=== PATIENT | female | born 1930 | race Caucasian/White ===

== ENCOUNTER 2016-07-26 18:45 | Emergency (ER) | payer MEDICARE, MEDICAID ==
[~2016-07-26] VITALS: Ht 165.1 cm; Wt 65.0 kg
[~2016-07-26 18:45] MED LIST: ACIP20TA19 PO; ADVAI500I PO; ALPH0.1S OP; AMIT10 PO; BECL.042%I INH; CALCCHW9 PO; CELE200 PO; DIOV320T PO; LYRI50CA2 PO; MINO50TA PO; OMEG5CAP PO; POTA595T5 PO; ULTR50TA PO; VYTO10TA29 PO; [UNRECOGNIZED DRUG - CODE]; [UNRECOGNIZED DRUG - CODE] IM
[2016-07-26 18:46] VITALS: BP 170/81; PULSE 112; RESP 14; TEMP 98.2; O2SAT 94
--- NOTE | 2016-07-26 20:16 | PD ---
HPI Chief Complaint: Laceration/Skin Injury Time Seen by Provider: 20:00 Travel History International Travel<30 days: No Contact w/Intl Traveler<30days: No Traveled to known affect area: No History of Present Illness HPI 85-year-old female presents for evaluation of a skin tear to the left forearm. It was sustained 2 hours prior to arrival on the edge of a microwave. She has very thin skin and has had skin tears in the past, most recently in mid June on her right leg. She is on chronic prednisone for treatment of rheumatoid arthritis. 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 Last tetanus vaccination within 5 years. No other complaints. PFSH Past Medical History Arthritis: Yes Asthma: Yes Atrial Fibrillation: Yes Heart Rhythm Problems: Yes Cancer: No Cardiovascular Problems: Yes (ATRIAL FIB 15 YEARS AGO--RESOLVED) High Cholesterol: Yes Chest Pain: No Congestive Heart Failure: No COPD: Yes Diabetes: No Diminished Hearing: No Endocrine: No Fibromyalgia: Yes Gastrointestinal Disorders: Yes (ACID REFLUX, CONSTIPATION) GERD: No Genitourinary: No Hepatitis: No Hiatal Hernia: No Hypertension: Yes Immune Disorder: Yes (RHEUMATOID ARTHRITIS, FIBROMYALGIA) Musculoskeletal: Yes (RHEUMATOID AND OSTEOARTHRITIS, CHRONIC BACK PAIN, RIB FRACTURES) Neurologic: No Psychiatric: No Reproductive: No Respiratory: Yes (copd) Immunizations Current: Yes Sleep Apnea: No Thyroid Disease: No Ulcer: No Tetanus Vaccination: > 5 Years Influenza Vaccination: Yes Menopausal: Yes Past Surgical History Abdominal Surgery: Yes (APPENDECTOMY) Appendectomy: Yes Body Medical Devices: HX OF FIBROMYALGIA Cardiac Surgery: No Ear Surgery: Yes Endocrine Surgery: No Eye Surgery: Yes (SKIP CATARACTS SURGERY) Genitourinary Surgery: Yes (BLADDER SLING) Gynecologic Surgery: Yes (HYSTERECTOMY) Hysterectomy: Yes Neurologic Surgery: Yes Oral Surgery: No Pacemaker: No Thoracic Surgery: No Tonsillectomy: Yes Other Surgery: Yes (REMOVAL OF NASAL POLYPS) Social History Alcohol Use: No Tobacco Use: No Substance Use: No Allergies-Medications (Allergen,Severity, Reaction): Coded Allergies: Flagyl (Verified Allergy, Severe, 07/24/16) Flexeril (Verified Allergy, Severe, HEART PROBLEMS, 07/24/16) Gabapentin (Verified Allergy, Severe, RASH, 07/24/16) Meloxicam (Verified Allergy, Severe, RASH, 07/24/16) Rocephin (Verified Allergy, Severe, 07/24/16) Codeine (Verified Allergy, Mild, NAUSEA/VOMIT, 07/24/16) Keflex (Verified Allergy, Mild, Swelling, 07/24/16) Penicillin (Verified Allergy, Mild, Swelling, 07/24/16) Sulfa (Verified Allergy, Mild, Swelling, 07/24/16) *MDRO Multi-Drug Resistant Organism (Verified Allergy, Unknown, 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 Plaquenil (Verified Allergy, Unknown, 07/24/16) Reported Meds & Prescriptions Reported Meds & Active Scripts Active Reported Minocycline Hcl (Minocycline HCl) 50 Mg Cap 50 Mg PO BID Ultram (Tramadol HCl) 50 Mg Tab 50 Mg PO TID PRN Diovan 320 mg (Valsartan) 320 Mg Tab 320 Mg PO DAILY Delestrogen (Estradiol Valerate) 100 Mg/5 Ml Oil Delestrogen (Estradiol Valerate) 10 Mg/Ml Inj 20 Mg IM MONTHLY Vytorin 10/10 (Ezetimibe/Simvastatin) Tab 1 Tab PO HS Advair Diskus 500/50 (Salmeterol Xinafoate/Fluticasone) Fluticasone/Salmeterol 500/50 Inh 1 Inhalation PO BID Alphagan P (Brimonidine Tartrate) 0.1 % Bee 1 Drop OP TID BOTH EYES Fish Oil 1200 mg ([place]-3 Fatty Acids) 1 Cap Cap 1 Cap PO DAILY Eql Potassium Gluconate (Potassium Gluconate) 595 Mg Tab 595 Mg PO DAILY Calcium 1200 (Calcium Carbonate-Vitamin D W/) Chw 1 Tab PO BID Lyrica (Pregabalin) 50 Mg Cap 50 Mg PO TID Elavil 10 Mg Tab (Amitriptyline HCl) 10 Mg Tab 20 Mg PO HS Aciphex (Rabeprazole Sodium) 20 Mg Tabdr 20 Mg PO DAILY Beconase Aq (Beclomethasone Dipropionate) 25 Gm Naspr 0.042 % INH BID Celebrex (Celecoxib) 200 Mg Cap 200 Mg PO DAILY Review of Systems Except as stated in HPI: all other systems reviewed are Neg Physical Exam Narrative GENERAL: Well-developed well-nourished female in no acute distress SKIN: Warm and dry. There is a 3 cm V-shaped skin tear to the left forearm. The patient has paper thin skin. The dermis is intact. Subcutaneous tissue is not visible. Extremities: Skin as noted above, no bony or neurovascular deformity. Data Data Last Documented VS Vital Signs Date Time Temp Pulse Resp B/P Pulse Ox O2 Delivery O2 Flow Rate FiO2 07/26/16 18:46 98.2 112 14 170/81 94 Room Air MDM Medical Decision Making Medical Screen Exam Complete: Yes Emergency Medical Condition: Yes Medical Record Reviewed: Yes Differential Diagnosis Skin tear, tissue avulsion, puncture wound Narrative Course The patient's superficial skin tear was repaired utilizing Dermabond and Steri- Strips as it would not be amenable to suture repair given the frailness of her skin. She verbalizes consent for skin tear repair. Procedures Procedure Narrative Skin tear LOCATION: Left forearm LENGTH: 3 cm NUMBER OF STITCHES/ANUM: Closed with Dermabond and Steri-Strips REPAIR:The wound was copiously irrigated and explored without evidence of foreign body, tendon injury or neurovascular injury. The wound was closed using Dermabond and Steri-Strips. This was a single layer repair. A sterile dressing was applied. The patient was advised to keep the dressing clean and dry. Patient tolerated the procedure well. Diagnosis Primary Impression: Skin tear of left upper extremity Additional Instructions: Keep the wound clean and dry. Follow-up with your rn wound care as scheduled. Return for any emergent medical conditions. Med/Other Pt SpecificInfo: Wound Care Disposition: DISCHARGE HOME Condition: Stable Raf Borjas Jul 26, 2016 20:16
[2016-08-16] MEDS ORDERED: LYRI50CA PO (11:45)
[2016-08-16] MEDS ORDERED: MINO50CA PO (11:45)
[2016-08-16] MEDS ORDERED: VALS1TAB70 PO (11:45)
[2016-08-16] MEDS ORDERED: ALPH0.1S EACH EYE (11:45)
[2016-08-16] MEDS ORDERED: CELE200C PO (11:45)
[2016-08-16] MEDS ORDERED: POTA595T PO (11:45)
[2016-08-16] MEDS ORDERED: TRAM50TA PO (11:45)
[2016-08-16] MEDS ORDERED: ADVA500A INH (11:45)
[2016-08-16] MEDS ORDERED: VYTO10TA27 PO (11:45)
[2016-08-16] MEDS ORDERED: [UNRECOGNIZED DRUG - CODE] INJ (11:45)
[2016-08-16] MEDS ORDERED: CALCCHW9 CHEW (11:45)
[2016-08-16] MEDS ORDERED: AMIT1TAB79 PO (11:45)
[2016-08-16] MEDS ORDERED: ACIP20TA6 PO (11:45)
[2016-08-16] MEDS ORDERED: BECL.042%I EACH NARE (11:45)
[2016-08-16] MEDS ORDERED: OMEG12002 PO (11:45)
[2016-08-21] MEDS ORDERED: CIPR-9 PO (11:10)
[2016-12-01] MEDS ORDERED: MURO2SOL RIGHT EYE (08:52)
[2016-12-01] MEDS ORDERED: PRED2.5T PO (09:08)
== END 2016-07-26 20:32 | disposition home or self-care (01) ==
LOC: NEPB 18:45
DX: S51.812A Laceration without foreign body of left forearm, initial encounter (principal); W22.8XXA Striking against or struck by other objects, initial encounter; M06.9 Rheumatoid arthritis, unspecified; J45.909 Unspecified asthma, uncomplicated; I48.91 Unspecified atrial fibrillation; E78.00 Pure hypercholesterolemia, unspecified; J44.9 Chronic obstructive pulmonary disease, unspecified; I10 Essential (primary) hypertension
CPT/HCPCS: 12002

== ENCOUNTER → 2016-08-18 | Outpatient (CLI) | payer MEDICARE, MEDICAID ==
[~2016-08-18] MED LIST changes: -ACIP20TA19 PO; +ACIP20TA6 PO; +ADVA500A INH; -ADVAI500I PO; +ALPH0.1S EACH EYE; -ALPH0.1S OP; -AMIT10 PO; +AMIT10TA6 PO; +AMIT1TAB79 PO; +BECL.042%I EACH NARE; -BECL.042%I INH; +CALC600T64 PO; +CALCCHW9 CHEW; -CALCCHW9 PO; -CELE200 PO; +CELE200C PO; +CIPR-9 PO; -DIOV320T PO; +LATA0.002 EACH EYE; +LYRI50CA PO; -LYRI50CA2 PO; +MINO50CA PO; -MINO50TA PO; +MURO2SOL RIGHT EYE; +OMEG12002 PO; -OMEG5CAP PO; +POTA595T PO; -POTA595T5 PO; +PRED2.5T PO; +TRAM50TA PO; -ULTR50TA PO; +VALS1TAB70 PO; +VYTO10TA27 PO; -VYTO10TA29 PO; -[UNRECOGNIZED DRUG - CODE]; -[UNRECOGNIZED DRUG - CODE] IM; +[UNRECOGNIZED DRUG - CODE] INJ
== END ==
LOC: ELAB 11:32
PROVIDERS: ATTEND Internal Medicine
DX: R05 Cough (principal)
CPT/HCPCS: 87070; 87107; 87205

== ENCOUNTER → 2016-09-04 | Outpatient (CLI) | payer MEDICARE, MEDICAID ==
[~2016-09-04] MED LIST changes: -CIPR-9 PO
--- NOTE | 2016-09-06 08:50 | RSPPFT ---
DATE OF PROCEDURE: 09/04/16 COMMENTS: VOLUMES DYNAMIC: FVC and FEV1 normal. STATIC: VTG, RV and TLC normal. FLOWS: FEV1% and FEF 25-75 normal. DIFFUSION: Normal. FLOW VOLUME LOOP: Normal configuration. IMPRESSION: Normal pulmonary functions with no significant obstruction or restriction, normal diffusion and no improvement post-bronchodilator.
== END ==
LOC: HRSP 13:14
PROVIDERS: ATTEND Internal Medicine
DX: J44.9 Chronic obstructive pulmonary disease, unspecified (principal); J45.909 Unspecified asthma, uncomplicated
CPT/HCPCS: 94060; 94620; 94726; 94729; 95012

== ENCOUNTER → 2016-09-05 | Outpatient (CLI) | payer MEDICARE, MEDICAID ==
[2016-09-05 12:24] LABS: AUTOMATED NEUTROPHIL # 4.6 TH/MM3 (1.8-7.7); BASOPHIL # 0.1 TH/MM3 (0-0.2); BASOPHIL % 1.3 % (0.0-2.0); EOSINOPHIL # 0.7 TH/MM3 (0-0.4); EOSINOPHIL % 8.6 % (0.0-4.0); HEMATOCRIT 36.6 % (35.0-46.0); HEMO FLAGS DIFF FINAL; LYMPH % 17.8 % (9.0-44.0); LYMPHOCYTE # 1.4 TH/MM3 (1.0-4.8); MEAN CELL VOLUME 88.7 FL (80.0-100.0); MEAN CORPUSCULAR HEMOGLOBIN 29.3 PG (27.0-34.0); MONO % 13.7 % (0.0-8.0); NEUT % 58.6 % (16.0-70.0); PLATELET COUNT 311 TH/MM3 (150-450); RED BLOOD COUNT 4.13 MIL/MM3 (4.00-5.30); RED CELL DISTRIBUTION WIDTH 13.9 % (11.6-17.2); WHITE BLOOD COUNT 7.8 TH/MM3 (4.0-11.0)
[2016-09-05 12:37] LABS: ALKALINE PHOSPHATASE 67 U/L (45-117); ALT (GPT) 18 U/L (10-53); ANION GAP 7 MEQ/L (5-15); AST (GOT) 18 U/L (15-37); BICARBONATE 27.7 MEQ/L (21.0-32.0); BLOOD UREA NITROGEN 21 MG/DL (7-18); CHLORIDE 105 MEQ/L (98-107); GLOMERULAR FILTRATION RATE 55 ML/MIN (>89); GLUCOSE,FASTING 85 MG/DL (74-99); POTASSIUM 3.6 MEQ/L (3.5-5.1); SODIUM (NA) 140 MEQ/L (136-145); TOTAL BILIRUBIN ADULT 0.6 MG/DL (0.2-1.0)
[2016-09-05 12:54] LABS: WESTERGREN SEDIMENTATION RATE 17 mm/hr (0-30)
== END ==
LOC: ELAB 10:13
PROVIDERS: ATTEND Internal Medicine
DX: J47.9 Bronchiectasis, uncomplicated (principal); J45.909 Unspecified asthma, uncomplicated; B44.9 Aspergillosis, unspecified; M06.89 Other specified rheumatoid arthritis, multiple sites; Z79.899 Other long term (current) drug therapy
CPT/HCPCS: 36415; 80053; 82785; 85025; 85652; 86140; 86606

== ENCOUNTER 2016-10-01 14:33 | Emergency (ER) | payer MEDICARE, MEDICAID ==
[~2016-10-01] VITALS: Ht 165.1 cm; Wt 70.0 kg
[~2016-10-01 14:33] MED LIST changes: -AMIT10TA6 PO; -CALC600T64 PO; -LATA0.002 EACH EYE; -MURO2SOL RIGHT EYE; -PRED2.5T PO
[2016-10-01 14:36] VITALS: BP 168/84; PULSE 78; RESP 16; TEMP 97.9; O2SAT 97
--- NOTE | 2016-10-01 15:00 | PD ---
HPI . left forearm abrasion Chief Complaint: Skin Problem Time Seen by Provider: 14:59 Travel History International Travel<30 days: No Contact w/Intl Traveler<30days: No Traveled to known affect area: No History of Present Illness HPI 86 yr old female with multiple medical problems here requesting sutures to a small abrasion on her left medial forearm. Patient has a small abrasion and not aware of a mechanism of injury. She came in requesting sutures because she is scheduled to have an epidural on 10/20 and the doctor will not perform if she has any open skin abrasions. She has no complaints. PFSH Past Medical History Arthritis: Yes Asthma: Yes Atrial Fibrillation: Yes Heart Rhythm Problems: Yes Cancer: No Cardiovascular Problems: Yes (ATRIAL FIB 15 YEARS AGO--RESOLVED) High Cholesterol: Yes Chest Pain: No Congestive Heart Failure: No COPD: Yes Diabetes: No Diminished Hearing: No Endocrine: No Fibromyalgia: Yes Gastrointestinal Disorders: Yes (ACID REFLUX, CONSTIPATION) GERD: No Genitourinary: No Hepatitis: No Hiatal Hernia: No Hypertension: Yes Immune Disorder: Yes (RHEUMATOID ARTHRITIS, FIBROMYALGIA) Musculoskeletal: Yes (RHEUMATOID AND OSTEOARTHRITIS, CHRONIC BACK PAIN, RIB FRACTURES) Neurologic: No Psychiatric: No Reproductive: No Respiratory: Yes (copd) Immunizations Current: Yes Sleep Apnea: No Thyroid Disease: No Ulcer: No Menopausal: Yes Past Surgical History Abdominal Surgery: Yes (APPENDECTOMY) Appendectomy: Yes Body Medical Devices: HX OF FIBROMYALGIA Cardiac Surgery: No Ear Surgery: Yes Endocrine Surgery: No Eye Surgery: Yes (SKIP CATARACTS SURGERY) Genitourinary Surgery: Yes (BLADDER SLING) Gynecologic Surgery: Yes (HYSTERECTOMY) Hysterectomy: Yes Neurologic Surgery: Yes Oral Surgery: No Pacemaker: No Thoracic Surgery: No Tonsillectomy: Yes Other Surgery: Yes (REMOVAL OF NASAL POLYPS) Social History Alcohol Use: No Tobacco Use: No Substance Use: No Allergies-Medications (Allergen,Severity, Reaction): Coded Allergies: Flagyl (Verified Allergy, Severe, 10/01/16) Flexeril (Verified Allergy, Severe, HEART PROBLEMS, 10/01/16) Gabapentin (Verified Allergy, Severe, RASH, 10/01/16) Meloxicam (Verified Allergy, Severe, RASH, 10/01/16) Rocephin (Verified Allergy, Severe, 10/01/16) Codeine (Verified Allergy, Mild, NAUSEA/VOMIT, 10/01/16) Keflex (Verified Allergy, Mild, Swelling, 10/01/16) Penicillin (Verified Allergy, Mild, Swelling, 10/01/16) Sulfa (Verified Allergy, Mild, Swelling, 10/01/16) *MDRO Multi-Drug Resistant Organism (Verified Allergy, Unknown, 10/01/16) MRSA Plaquenil (Verified Allergy, Unknown, 10/01/16) Reported Meds & Prescriptions Reported Meds & Active Scripts Active Reported Advair Diskus Inh (Fluticasone-Salmeterol Inh) 500-50 Mcg/Blist Aer 1 Puff INH BID Rinse mouth after use. Beconase Aq Nasal (Beclomethasone Dipropionate) 42 Mcg/[place] Susp 1 [place] NASAL BID To each nostril. Alphagan P Opth Drops (Brimonidine Tartrate) 0.1% Soln 1 Drop EACH EYE TID Calcium 1200 (Calcium Carbonate-Vitamin D W/Minerals) 1,200-1,000 Mg-Unit Chew 1 Tab CHEW BID Celebrex (Celecoxib) 200 Mg Cap 200 Mg PO DAILY Delestrogen Valerate Inj (Estradiol Valerate) 20 Mg/Ml Inj 20 Mg INJ MONTHLY Elavil (Amitriptyline HCl) 25 Mg Tab 20 Mg PO HS Vytorin (Ezetimibe-Simvastatin) 10-10 Mg Tab 1 Tab PO HS Minocycline (Minocycline HCl) 50 Mg Cap 50 Mg PO BID [place] 3 1200 mg ([place]-3 Fatty Acids) 1 Cap Cap 1 Cap PO DAILY Potassium Gluconate 595 Mg Tab 1 PO DAILY Lyrica (Pregabalin) 50 Mg Cap 50 Mg PO TID Aciphex (Rabeprazole Sodium) 20 Mg Tab 20 Mg PO DAILY Tramadol (Tramadol HCl) 50 Mg Tab 50 Mg PO TID PRN Valsartan 320 Mg Tab 320 Mg PO DAILY Review of Systems General / Constitutional: No: Fever Eyes: No: Visual changes HENT: No: Headaches Cardiovascular: No: Chest Pain or Discomfort Respiratory: No: Shortness of Breath Gastrointestinal: No: Abdominal Pain Genitourinary: No: Dysuria Musculoskeletal: No: Pain Skin: Positive Other (skin abrasion), No Rash Neurologic: No: Weakness Psychiatric: No: Depression Endocrine: No: Polydipsia Hematologic/Lymphatic: No: Easy Bruising Physical Exam Narrative GENERAL: AAO x 3, no acute distress, Well-nourished, well-developed patient. SKIN: Warm and dry. No visible rashes or bruising. small 0.8 cm abrasion to the left medial forearm. Does not require sutures. Clean and not bleeding. HEAD: Normocephalic and atraumatic. EYES: No scleral icterus. No injection or drainage. ENT: No nasal drainage noted. Mucous membranes pink. Airway patent. NECK: Supple, trachea midline. No JVD. CARDIOVASCULAR: Regular rate and rhythm without murmurs, gallops, or rubs. RESPIRATORY: Breath sounds equal bilaterally. No accessory muscle use. No rhonchi or rales. GASTROINTESTINAL: Abdomen soft, non-tender, nondistended. EXTREMITIES: No cyanosis or edema. BACK: Nontender without obvious deformity. No CVA tenderness. PSYCH: AAO x 3, normal affect. Data Data Last Documented VS Vital Signs Date Time Temp Pulse Resp B/P Pulse Ox O2 Delivery O2 Flow Rate FiO2 10/01/16 14:36 97.9 78 16 168/84 97 MDM Medical Decision Making Medical Screen Exam Complete: Yes Emergency Medical Condition: Yes Differential Diagnosis skin abrasion, less likely laceration, less likely fracture Narrative Course 86 yr old female with multiple medical problems here requesting sutures to a small abrasion on her left medial forearm. Patient has a small abrasion and not aware of a mechanism of injury. She came in requesting sutures because she is scheduled to have an epidural on 10/20 and the doctor will not perform if she has any open skin abrasions. She has no complaints. Procedures Procedure Narrative LACERATION LOCATION: left medial forearm abrasion LENGTH: 0.8 cm NUMBER OF STITCHES/ANUM: derma leon and steri strip REPAIR: The area of the laceration was prepped with Betadine. No evidence of foreign body, tendon injury or neurovascular injury. The wound was closed using derma leon and a steri strip. This was a single layer repair. A sterile dressing was applied. The patient was advised to keep the dressing clean and dry. Patient tolerated the procedure well. Diagnosis Primary Impression: Skin tear of left upper extremity Patient Instructions: Abrasion (ED), General Instructions Additional Instructions: Please return to emergency department if your symptoms return or worsen. Follow up with your primary care provider. Howes for worsening signs of infection which include increased redness, increased warmth, purulent drainage, increased swelling or streaking. Try to keep this area free of moisture. Disposition: 01 DISCHARGE HOME Condition: Stable Mady Rehman Oct 01, 2016 14:59
[2016-12-01] MEDS ORDERED: MURO2SOL RIGHT EYE (08:52)
[2016-12-01] MEDS ORDERED: PRED2.5T PO (09:08)
== END 2016-10-01 15:55 | disposition home or self-care (01) ==
LOC: NEPB 14:33
DX: S51.812A Laceration without foreign body of left forearm, initial encounter (principal); X58.XXXA Exposure to other specified factors, initial encounter
CPT/HCPCS: 12001

== ENCOUNTER → 2016-11-28 | Outpatient (CLI) | payer MEDICARE, MEDICAID ==
[~2016-11-28] MED LIST changes: +AMIT10TA6 PO; +CALC600T64 PO; +LATA0.002 EACH EYE; +MURO2SOL RIGHT EYE; +PRED2.5T PO
[2016-11-28 11:52] LABS: HEMATOCRIT 35.9 % (35.0-46.0); MEAN CELL VOLUME 89.2 FL (80.0-100.0); MEAN CORPUSCULAR HEMOGLOBIN 28.4 PG (27.0-34.0); MEAN CORPUSCULAR HGB CONC 31.8 % (32.0-36.0); PLATELET COUNT 274 TH/MM3 (150-450); RED BLOOD COUNT 4.03 MIL/MM3 (4.00-5.30); RED CELL DISTRIBUTION WIDTH 14.7 % (11.6-17.2); REVIEW FLAG FINAL; WHITE BLOOD COUNT 6.3 TH/MM3 (4.0-11.0)
[2016-11-28 12:15] LABS: ALKALINE PHOSPHATASE 60 U/L (45-117); ALT (GPT) 24 U/L (10-53); ANION GAP 6 MEQ/L (5-15); AST (GOT) 21 U/L (15-37); BICARBONATE 29.6 MEQ/L (21.0-32.0); BLOOD UREA NITROGEN 20 MG/DL (7-18); CHLORIDE 105 MEQ/L (98-107); GLOMERULAR FILTRATION RATE 49 ML/MIN (>89); GLUCOSE,FASTING 81 MG/DL (74-99); POTASSIUM 3.9 MEQ/L (3.5-5.1); SODIUM (NA) 141 MEQ/L (136-145); TOTAL BILIRUBIN ADULT 0.5 MG/DL (0.2-1.0)
[2016-11-30 14:00] LABS: MITOGEN MINUS NIL RESULT >10.00 IU/mL (()); NIL RESULT 0.12 IU/mL (()); QUANTIFERON TB GOLD RESULT Negative (Negative)
== END ==
LOC: ELAB 10:03
PROVIDERS: ATTEND Internal Medicine Cardiovascular Disease
DX: M06.89 Other specified rheumatoid arthritis, multiple sites (principal); I10 Essential (primary) hypertension; Z79.899 Other long term (current) drug therapy
CPT/HCPCS: 36415; 80053; 85027; 86480

== ENCOUNTER → 2016-12-01 | Day surgery (SDC) | payer MEDICARE, MEDICAID ==
[~2016-12-01] MED LIST changes: +IOHEXOL 180 MG/ML 20 ML VIAL (for RAD DIAG) EPIDURAL ONE; +LIDOCAINE HCL 1% PF 30 ML VIAL EPIDURAL ONE; +PROPOFOL 200 MG/20 ML AMP IV ONE; +TRIAMCINOLONE ACETONIDE 40 MG/ML VIAL NERV BLOCK ONE
--- NOTE | 2016-12-04 08:56 | M6 ---
cc: SULLY SHOEMAKER M.D. DATE 12/01/2016 1932 PROCEDURE Fluoroscopically guided right S1 transforaminal nerve root injection, local anesthetic and steroid. History and physical was completed and signed. Consent was signed. Procedure site was marked. Medications were listed and reconciled. Pain score was recorded. Allergies were noted. Time out was taken. Fluoroscopy time was recorded where applicable. Sedation was administered or directed by Dr. Shoemaker. The patient was given oxygen. The patient was monitored by a registered nurse. Total procedure time was greater than 15 minutes. PROCEDURE NOTE IV was started. Blood pressure cuff, pulse oximeter and EKG were applied. The patient was placed in the prone position on a Yuriy table, sedated with small amounts of propofol titrated to effect. Vital signs were monitored and remained stable throughout the procedure. The sacral area was prepped with alcohol and 10% Betadine solution and draped with sterile drapes. Fluoroscopy was used in an oblique angle to clearly visualize the right S1 neural foramen. A 3-1/2-inch Chiba needle which was a 22-gauge needle was advanced into the foramen under fluoroscopic guidance. There was negative aspiration for blood or any other type of fluid. There was no washout to injection of Omnipaque dye and at this point the patient was given 3 mL of 1% Xylocaine and 60 mg of Kenalog. Following the procedure the patient was taken to the recovery room with stable vital signs, neurologically intact. WMD JOHN Monzon/JAYCEE /10:00 AM /8:55 AM
== END | disposition home or self-care (01) ==
LOC: PHSDC 08:18
PROVIDERS: ATTEND Pain Medicine Interventional Pain Medicine
DX: M54.5 Low back pain (principal)
CPT/HCPCS: 64483; 99152; J3301; Q9965

== ENCOUNTER 2016-12-12 14:26 | Emergency (ER) | payer OTHER, MEDICARE, MEDICAID ==
[~2016-12-12] VITALS: Ht 165.1 cm; Wt 64.0 kg
[~2016-12-12 14:26] MED LIST changes: -AMIT10TA6 PO; -CALC600T64 PO; -IOHEXOL 180 MG/ML 20 ML VIAL (for RAD DIAG) EPIDURAL ONE; -LATA0.002 EACH EYE; -LIDOCAINE HCL 1% PF 30 ML VIAL EPIDURAL ONE; -MINO50CA PO; -PROPOFOL 200 MG/20 ML AMP IV ONE; -TRIAMCINOLONE ACETONIDE 40 MG/ML VIAL NERV BLOCK ONE
[2016-12-12 14:35] VITALS: BP 156/71; PULSE 108; RESP 21; TEMP 98; O2SAT 96
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
[2016-12-12] MEDS ORDERED: SODIUM CHLORIDE 0.9% FLUSH 10 ML FLUSH IVF PRN (15:30)
[2016-12-12 15:32] VITALS: O2SAT 94
[2016-12-12 15:38] LABS: AUTOMATED NEUTROPHIL # 5.8 TH/MM3 (1.8-7.7); BASOPHIL # 0.1 TH/MM3 (0-0.2); EOSINOPHIL # 0.1 TH/MM3 (0-0.4); EOSINOPHIL % 1.6 % (0.0-4.0); HEMATOCRIT 37.2 % (35.0-46.0); HEMO FLAGS DIFF FINAL; LYMPH % 14.9 % (9.0-44.0); LYMPHOCYTE # 1.2 TH/MM3 (1.0-4.8); MEAN CELL VOLUME 89.7 FL (80.0-100.0); MEAN CORPUSCULAR HEMOGLOBIN 28.8 PG (27.0-34.0); MEAN CORPUSCULAR HGB CONC 32.1 % (32.0-36.0); MONO % 12.1 % (0.0-8.0); NEUT % 70.4 % (16.0-70.0); PLATELET COUNT 282 TH/MM3 (150-450); RED BLOOD COUNT 4.14 MIL/MM3 (4.00-5.30); RED CELL DISTRIBUTION WIDTH 14.7 % (11.6-17.2); WHITE BLOOD COUNT 8.2 TH/MM3 (4.0-11.0)
[2016-12-12 16:02] LABS: APTT (PATIENT) 23.1 SEC (24.3-30.1); INTERNATIONAL NORMALIZED RATIO 0.9 RATIO; PROTHROMBIN TIME - PATIENT 9.8 SEC (9.8-11.6)
[2016-12-12 16:20] LABS: BICARBONATE 25.1 MEQ/L (21.0-32.0); POTASSIUM 4.3 MEQ/L (3.5-5.1)
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
[2016-12-12] MEDS ORDERED: IOHEXOL 350 MG/ML 10 ML VIAL (for RAD DIAG) IV ONE (16:54)
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
[2016-12-12 17:17] VITALS: BP 169/77; PULSE 80; RESP 18; O2SAT 96
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
[2016-12-12] MEDS ORDERED: CALC600T64 PO (17:40)
[2016-12-12] MEDS ORDERED: AMIT10TA6 PO (17:40)
[2016-12-12] MEDS ORDERED: LATA0.002 EACH EYE (17:40)
--- NOTE | 2016-12-13 09:33 | EKG ---
Date Performed: 12/12/2016 Time Performed: 16:11:43 PTAGE: 86 years EKG: Sinus rhythm NORMAL ECG PREVIOUS TRACING : 05/01/2014 06.58 DOCTOR: Sandro Reaves Interpretating Date/Time 12/13/2016 09:31:48
== END 2016-12-12 18:41 | disposition home or self-care (01) ==
LOC: NEPE 14:26
DX: S20.212A Contusion of left front wall of thorax, initial encounter (principal); S80.12XA Contusion of left lower leg, initial encounter; N28.1 Cyst of kidney, acquired; I10 Essential (primary) hypertension; V49.40XA Driver injured in collision with unspecified motor vehicles in traffic accident, initial encounter
CPT/HCPCS: 70450; 71111; 71260; 72125; 72170; 73590; 74177; 80048; 85025; 85610; 85730; 93005; 99285; Q9967

== ENCOUNTER → 2017-03-12 | Day surgery (SDC) | payer MEDICARE, MEDICAID ==
[~2017-03-12] MED LIST changes: -ALPH0.1S EACH EYE; +AMIT10TA6 PO; -AMIT1TAB79 PO; +BUPIVACAINE HCL PF 0.5% 30 ML VIAL ONE; +CALC600T64 PO; -CALCCHW9 CHEW; +LATA0.002 EACH EYE; +PROPOFOL 200 MG/20 ML AMP IV ONE; +SODIUM CHLORIDE 0.9% 10 ML VIAL ONE; +TRIAMCINOLONE ACETONIDE 40 MG/ML VIAL NERV BLOCK ONE
--- NOTE | 2017-03-14 07:48 | M6 ---
cc: SULLY SHOEMAKER M.D. DATE 03/12/2017 DATE OF 1930. PROCEDURE Fluoroscopically guided right S1 transforaminal epidural steroid injection. History and physical was completed and signed. Consent was signed. Procedure site was marked. Medications were listed and reconciled. Pain score was recorded. Allergies were noted. Time out was taken. Fluoroscopy time was recorded where applicable. Sedation was administered or directed by Dr. Shoemaker. The patient was given oxygen. The patient was monitored by a registered nurse. Total procedure time was greater than 15 minutes. PROCEDURE NOTE IV was started. Blood pressure cuff, pulse oximeter and EKG were applied. The patient was placed in the prone position on a Yuriy table, sedated with small amounts of propofol titrated to effect. Vital signs were monitored and remained stable throughout the procedure. The sacral area was prepped with alcohol and 10% Betadine solution and draped with sterile drapes. Fluoroscopy was used to visualize the right S1 neural foramen. A 3-1/2-inch, 22-gauge Chiba needle was advanced through the neural foramen under fluoroscopic guidance. There was negative aspiration for blood or any other type of fluid and the patient was given 2 mL of 0.25% Marcaine, 2 mL of normal saline and 60 mg of Kenalog. Following the procedure the patient was taken to the recovery room with stable vital signs, neurologically intact. W. MD JOHN Miguel/JAYCEE /9:33 AM /7:39 AM
== END | disposition home or self-care (01) ==
LOC: PHSDC 08:16
PROVIDERS: ATTEND Pain Medicine Interventional Pain Medicine
DX: M54.16 Radiculopathy, lumbar region (principal); M79.669 Pain in unspecified lower leg
CPT/HCPCS: 64483; 99152; J3301

== ENCOUNTER → 2017-06-14 | Day surgery (SDC) | payer MEDICARE, MEDICAID ==
[~2017-06-14] MED LIST changes: +ACIP20TA19 PO; -ACIP20TA6 PO; -BECL.042%I EACH NARE; -BUPIVACAINE HCL PF 0.5% 30 ML VIAL ONE; +CIPR-9 PO; +EZET1TAB8 PO; +IOHEXOL 180 MG/ML 20 ML VIAL (for RAD DIAG) EPIDURAL ONE; +LEFL20TA11 PO; +LIDOCAINE HCL 1% PF 30 ML VIAL EPIDURAL ONE; +SIMV10TA PO; -SODIUM CHLORIDE 0.9% 10 ML VIAL ONE
--- NOTE | 2017-06-14 13:16 | M6 ---
cc: SULLY SHOEMAKER M.D. DATE 06/14/2017 DATE OF 1930 PROCEDURE Fluoroscopically guided right S1 transforaminal epidural steroid injection. History and physical was completed and signed. Consent was signed. Procedure site was marked. Medications were listed and reconciled. Pain score was recorded. Allergies were noted. Time out was taken. Fluoroscopy time was recorded where applicable. Sedation was administered or directed by Dr. Shoemaker. The patient was given oxygen. The patient was monitored by a registered nurse. Total procedure time was greater than 15 minutes. PROCEDURE NOTE IV was started. Blood pressure cuff, pulse oximeter and EKG were applied. The patient was placed in the prone position on a Yuriy table, sedated with small amounts of propofol titrated to effect. Vital signs were monitored and remained stable throughout the procedure. The sacral area was prepped with alcohol and 10% Betadine solution and draped with sterile drapes. Fluoroscopy was used to visualize the right S1 neural foramen. A 3-1/2-inch, 22-gauge Chiba needle was advanced into the foramen under fluoroscopic guidance. There was negative aspiration for blood or any other type of fluid. Omnipaque dye was injected and seen to outline the S1 nerve root. At this point the patient was given 3 mL of 1% Xylocaine, 3 mL of Omnipaque and 60 mg of Kenalog at that location. Following this she was taken to the recovery room with stable vital signs neurologically intact. W. MD JOHN Miguel/JAYCEE /10:10 AM /1:12 PM
== END | disposition home or self-care (01) ==
LOC: PHSDC 08:37
PROVIDERS: ATTEND Pain Medicine Interventional Pain Medicine
DX: M54.16 Radiculopathy, lumbar region (principal); M79.661 Pain in right lower leg; I10 Essential (primary) hypertension; M79.7 Fibromyalgia; J44.9 Chronic obstructive pulmonary disease, unspecified
CPT/HCPCS: 64483; 99152; J3301; Q9965

== ENCOUNTER 2017-07-13 07:33 | Day surgery (SDC) | payer MEDICARE, MEDICAID ==
[~2017-07-13] VITALS: Ht 165.1 cm; Wt 65.9 kg
[2017-07-13] VITALS (12 sets, daily range): BP systolic 120–163; BP diastolic 67–101; PULSE 62–115; RESP 16–20; TEMP 97.5–97.7; O2SAT 93–96
[~2017-07-13 07:33] MED LIST changes: -ACIP20TA19 PO; -CALC600T64 PO; -CIPR-9 PO; -IOHEXOL 180 MG/ML 20 ML VIAL (for RAD DIAG) EPIDURAL ONE; -LIDOCAINE HCL 1% PF 30 ML VIAL EPIDURAL ONE; -LYRI50CA PO; -MURO2SOL RIGHT EYE; +NITR2OIN TOPICAL; -OMEG12002 PO; -POTA595T PO; -PRED2.5T PO; -PROPOFOL 200 MG/20 ML AMP IV ONE; -TRAM50TA PO; -TRIAMCINOLONE ACETONIDE 40 MG/ML VIAL NERV BLOCK ONE; -VYTO10TA27 PO; -[UNRECOGNIZED DRUG - CODE] INJ
[2017-07-13] MEDS ORDERED: NITROGLYCERIN 1000 MCG/5 ML VIAL OTHER ONE (07:34)
[2017-07-13] MEDS ORDERED: GUAI100S7 PO (08:10)
[2017-07-13] MEDS ORDERED: [UNRECOGNIZED DRUG - OTHER] (08:10)
[2017-07-13] MEDS ORDERED: LYRI50CA PO (08:10)
[2017-07-13] MEDS ORDERED: OMEG12002 (08:10)
[2017-07-13] MEDS ORDERED: VYTO10TA8 PO (08:10)
[2017-07-13] MEDS ORDERED: ASCO1CAP PO (08:10)
[2017-07-13] MEDS ORDERED: FOLI400T PO (08:10)
[2017-07-13] MEDS ORDERED: PRED2.5T PO (08:10)
[2017-07-13] MEDS ORDERED: POTA595T (08:10)
[2017-07-13] MEDS ORDERED: TRAM50TA PO (08:10)
[2017-07-13] MEDS ORDERED: MULTTAB67 PO (08:10)
[2017-07-13] MEDS ORDERED: VITA200C3 PO (08:10)
[2017-07-13] MEDS ORDERED: LECI12002 (08:10)
[2017-07-13] MEDS ORDERED: ACIP20TA19 PO (08:10)
[2017-07-13] MEDS ORDERED: CALC1TAB87 PO (08:10)
[2017-07-13 08:25] LABS: AUTOMATED NEUTROPHIL # 4.7 TH/MM3 (1.8-7.7); BASOPHIL # 0.1 TH/MM3 (0-0.2); BASOPHIL % 1.1 % (0.0-2.0); EOSINOPHIL # 0.2 TH/MM3 (0-0.4); EOSINOPHIL % 2.3 % (0.0-4.0); HEMATOCRIT 38.1 % (35.0-46.0); HEMOGLOBIN 12.5 GM/DL (11.6-15.3); LYMPH % 16.8 % (9.0-44.0); LYMPHOCYTE # 1.3 TH/MM3 (1.0-4.8); MEAN CELL VOLUME 93.9 FL (80.0-100.0); MEAN CORPUSCULAR HEMOGLOBIN 30.8 PG (27.0-34.0); MEAN CORPUSCULAR HGB CONC 32.8 % (32.0-36.0); MEAN PLATELET VOLUME 8.2 FL (7.0-11.0); MONO % 18.6 % (0.0-8.0); MONOCYTE # 1.4 TH/MM3 (0-0.9); NEUT % 61.2 % (16.0-70.0); PLATELET COUNT 235 TH/MM3 (150-450); RED BLOOD COUNT 4.06 MIL/MM3 (4.00-5.30); RED CELL DISTRIBUTION WIDTH 13.8 % (11.6-17.2); WHITE BLOOD COUNT 7.6 TH/MM3 (4.0-11.0)
[2017-07-13 08:37] LABS: INTERNATIONAL NORMALIZED RATIO 0.9 RATIO; PROTHROMBIN TIME - PATIENT 9.5 SEC (9.8-11.6)
[2017-07-13 08:41] LABS: BICARBONATE 27.2 MEQ/L (21.0-32.0); CREATININE 1.13 MG/DL (0.50-1.00)
[2017-07-13] MEDS ORDERED: SODIUM CHLOR 0.9% 1000 ML INJ 1,000 ML IV SCH ×2 (09:00→12:00)
[2017-07-13] MEDS ORDERED: MIDAZOLAM HCL 2 MG/2 ML VIAL ONE (09:13)
[2017-07-13] MEDS ORDERED: VERAPAMIL HCL 5 MG/2 ML VIAL ONE ×2 (09:13→10:15)
[2017-07-13] MEDS ORDERED: HEPARIN SODIUM - IV 10,000 UNITS/10 ML VIAL ONE (09:13)
[2017-07-13] MEDS ORDERED: PROTAMINE SULFATE 50 MG/5 ML VIAL ONE (10:37)
--- NOTE | 2017-07-13 11:23 | PD.RAD ---
Post Procedure Progress Note Pre Procedure Diagnosis: (1) Radial artery occlusion, left Post Procedure Diagnosis: (1) Radial artery occlusion, left Procedure Date: Jul 13, 2017 Supervising Radiologist: Joshua Rachel Proceduralist/Assist: Miguel Bruce, RT(R), Ayde Wolff, RT(R) Anesthesia: Conscious Sedation Plan of Activity Patient to Unit: ROPU Patient Condition: Good See PACS Report for procedural detail/treatment Joshua Rachel MD Jul 13, 2017 11:23
[2017-07-13] MEDS ORDERED: ACETAMINOPHEN 325 MG TAB PO PRN (11:30)
--- NOTE | 2017-07-13 12:04 | RADRPT ---
EXAM DATE/TIME: 07/13/2017 08:55 [facility] COMPARISON: No previous studies available for comparison. INDICATIONS : Patient presents with worsening ischemia in finger and cyanosis of hand. MEDICAL HISTORY : [place] Afib High cholesterol COPD GERD Rheumatoid Arthritis Fibromyalgia SURGICAL HISTORY : Bilateral Cataracts Nasal Polyp removal Bronchoscopy APPE Bladder Pinning Right knee Artherectomy ENCOUNTER: Initial ACUITY: 2 months PAIN SCORE: 7/10 All over FLUORO TIME: 8.6 minutes IMAGE SERIES: 30 ACCESS SITE: Left Femoral artery SEDATION TIME: 60 minutes CONTRAST: 1.) 35 cc Visipaque (iodixanol) MEDICATION(S): 1.) 4 mg midazolam (Versed) IV 2.) 200 mcg fentanyl (Sublimaze) IV PROCEDURE : 1. Ultrasound-guided puncture of the right common femoral artery. 2. Conscious sedation with continuous EKG and Oximetry monitoring. 3. Selective catheter placement in the left subclavian origin with subclavian angiography 4. Subselective catheter placement in the left axillary artery with left upper extremity angiography 5. Subselective catheter placement in the left distal brachial artery with left upper extremity marilu ography 6. Subselective catheter placement in the origin of the left radial artery with subselective angiogr aphy 7. Intra-arterial administration of verapamil/nitroglycerin cocktail in the left radial artery and d istal left brachial artery with followup angiography The risks, benefits and alternatives to the procedure were explained and verbal and written consent w as obtained. The site was prepped in sterile fashion. Full sterile technique was used, including ca p, mask, sterile gloves and gown and a large sterile sheet. Hand hygiene and 2% chlorhexidine and/or betadine/alcohol prep was utilized per protocol for cutaneous antisepsis. Sterile gel and sterile p robe cover were utilized for ultrasound guidance. The skin and subcutaneous tissues were infiltrated with local anesthetic solution. With ultrasound and fluoroscopic guidance the right common femoral artery was punctured and a vascula r sheath was placed. A 4 [place] Moser catheter was advanced into the subclavian origin angiograph y was performed centered about the left upper chest. Catheter was then advanced into the left axillar y artery and left upper extremity angiography was performed. Catheter was then advanced into the dist al left brachial artery and left upper extremity angiography was performed through the left hand. Cat heter was then repositioned into the origin of the left radial artery and angiography was performed. Next, a cocktail containing 2 mg verapamil and 200 mcg nitroglycerin was slowly injected into the lef t radial artery and repeat angiography was performed. Catheter was then repositioned into the distal left brachial artery and a second cocktail solution was slowly administered. Again, repeat angiograph y was performed. Rising catheters were then removed. The puncture site was closed with manual pressure and hemostasis was obtained. The patient tolerated the procedure well and there were no complications. Conscious sedation was performed with the prescribed dosages and duration as above in the presence of an independent trained radiology nurse to assist in the monitoring of the patient. EKG and oximetry remained stable throughout the procedure. Findings: Left subclavian artery is widely patent. Left vertebral artery origin is widely patent. Left axillary artery is widely patent. There is diffuse luminal irregularity of the mid to distal left brachial ar stephanie extending to the level of the humeral metadiaphysis. This is felt to be a least partially due to atherosclerotic disease although some segments have a somewhat beaded appearance. More distally the brachial artery is smooth in caliber and patent. The ulnar and interosseous arteries are widely paten t and normal in caliber. Radial artery is very small in caliber and tapers to occlusion in the distal forearm. There is now essentially in incomplete arch with partial opacification of the second digita l arteries and lack of significant opacification of the first distal artery. Remaining digital arteri es appear patent. CONCLUSION: 1. No significant left upper extremity inflow stenosis. 2. Long segment luminal irregularity of the mid to distal left brachial artery. This is at least part ially due to atherosclerotic disease. However, portions have a somewhat beaded appearance and therefo re potential vasculitis cannot be excluded. 3. Very small caliber left radial artery which tapers to occlusion in the distal forearm. The ulnar a nd interosseous arteries are robust and widely patent. However, there is an incomplete palmar arch wi th only partial opacification of the second and lack of opacification of the first digital arteries. Suspect this reflects an acute on chronic etiology. Potentially vasculitis involving the radial arter y with interval progression to the hand or loss of collateral circulation. No significant improvement following administration of vasodilators. Recommend medical management with clinical workup for vasc ulitis (ISLAS or giant cell arteritis which can sometimes involve the radial artery). Findings were personally discussed with Dr. Waddell. Joshua Rachel MD on July 13, 2017 at 11:44 Board Certified Radiologist. This report was verified electronically.
--- NOTE | 2017-07-13 16:33 | ECHRPT ---
Indication: clot CONCLUSIONS Normal left ventricular size. The left ventricular systolic function is normal with an estimated ejection fraction in the range of 55-60%. Mild mitral valve regurgitation. No aortic valve regurgitation. No aortic valve stenosis. There is trace tricuspid valve regurgitation. The estimated pulmonary arterial pressure is 45.3 mmHg. BP: / HR: Rhythm: MEASUREMENTS (Male / Female) Normal Values Technical Quality: 2D ECHO LV Diastolic Diameter PLAX 3.6 cm 4.2 - 5.9 / 3.9 - 5.3 cm LV Systolic Diameter PLAX 2.7 cm IVS Diastolic Thickness 1.3 cm 0.6 - 1.0 / 0.6 - 0.9 cm LVPW Diastolic Thickness 0.9 cm 0.6 - 1.0 / 0.6 - 0.9 cm LV Relative Wall Thickness 0.6 RV Internal Dim ED PLAX 2.8 cm M-MODE Aortic Root Diameter MM 3.5 cm LA Systolic Diameter MM 3.1 cm LA Ao Ratio MM 0.9 AV Cusp Separation MM 2.1 cm DOPPLER Mitral E Point Velocity 85.4 cm/s Mitral A Point Velocity 118.0 cm/s Mitral E to A Ratio 0.7 LV E' Lateral Velocity 6.8 cm/s Mitral E to LV E' Lateral Ratio 12.5 LV E' Septal Velocity 6.7 cm/s Mitral E to LV E' Septal Ratio 12.7 TR Peak Velocity 297.0 cm/s TR Peak Gradient 35.3 mmHg Right Atrial Pressure 10.0 mmHg Pulmonary Artery Systolic Pressu 45.3 mmHg Right Ventricular Systolic Press 45.3 mmHg FINDINGS LEFT VENTRICLE Normal left ventricular size. The left ventricular systolic function is normal with an estimated ejection fraction in the range of 55-60%. RIGHT VENTRICLE Normal right ventricular size and systolic function. LEFT ATRIUM The left atrial size is normal. RIGHT ATRIUM The right atrial size is normal. ATRIAL SEPTUM Normal atrial septal thickness without atrial level shunting by limited color doppler interrogation. AORTA The aortic root and proximal ascending aorta are normal in size on limited imaging. MITRAL VALVE Structurally normal mitral valve. Mild mitral valve regurgitation. AORTIC VALVE Trileaflet aortic valve. No aortic valve regurgitation. No aortic valve stenosis. TRICUSPID VALVE Structurally normal tricuspid valve. There is trace tricuspid valve regurgitation. The estimated pulmonary arterial pressure is 45.3 mmHg. PULMONARY VALVE No pulmonary valve regurgitation or stenosis. VESSELS The inferior vena cava is normal in size. PERICARDIUM No pericardial effusion. Mick Macias MD (Electronically Signed) Final Date:13 July 2017 16:32
[2017-07-23] MEDS ORDERED: AMLO10TA2 PO (12:00)
[2017-07-23] MEDS ORDERED: NITR2OIN CHEST (12:00)
== END 2017-07-13 17:25 | disposition home or self-care (01) ==
LOC: HROP 07:33 → HRIP 07:34 → HROP 17:25
PROVIDERS: ATTEND Internal Medicine Rheumatology
DX: I74.2 Embolism and thrombosis of arteries of the upper extremities (principal); I48.91 Unspecified atrial fibrillation; E78.00 Pure hypercholesterolemia, unspecified; J44.9 Chronic obstructive pulmonary disease, unspecified; K21.9 Gastro-esophageal reflux disease without esophagitis; M06.9 Rheumatoid arthritis, unspecified; M79.7 Fibromyalgia
CPT/HCPCS: 36217; 36218; 75710; 75774; 76937; 80048; 85025; 85610; 85730; 93306; 99152; 99153; C1769; C1894; J1644; J2250; J2720; J3010; J7030

== ENCOUNTER 2017-08-03 15:43 | Inpatient (IN) | payer MEDICARE, MEDICAID ==
[~2017-08-03] VITALS: Ht 165.1 cm; Wt 67.6 kg
[~2017-08-03 15:43] MED LIST changes: +ACIP20TA19 PO; +AMLO10TA2 PO; +ASCO1CAP PO; +CALC1TAB87 PO; -EZET1TAB8 PO; +FOLI400T PO; +GUAI100S7 PO; +LECI12002; +LYRI50CA PO; +MULTTAB67 PO; +NITR2OIN CHEST; -NITR2OIN TOPICAL; +OMEG12002; +POTA595T; +PRED2.5T PO; +PRED20 PO; -SIMV10TA PO; +TRAM50TA PO; +VITA200C3 PO; +VYTO10TA8 PO; +[UNRECOGNIZED DRUG - OTHER]
[2017-08-03 15:46] VITALS: BP 129/61; PULSE 108; RESP 14; TEMP 98.3; O2SAT 97
--- NOTE | 2017-08-03 17:45 | PD ---
HPI Chief Complaint: Edema Time Seen by Provider: 17:06 Travel History International Travel<30 days: No Contact w/Intl Traveler<30days: No Traveled to known affect area: No History of Present Illness HPI This is an 86-year-old female who presents to the emergency department with left lower extremity swelling, constant, moderate severity associated with warmth and redness. She has been followed in wound care clinic because she has a wound that is well healing on her right lower extremity but the redness in her left lower extremity just started. She was sent over from wound care clinic by Dr. Paz to be evaluated for possible infection versus DVT. PFSH Past Medical History Arthritis: Yes Asthma: Yes Atrial Fibrillation: Yes Autoimmune Disease: Yes (RA, OA) Heart Rhythm Problems: Yes Cancer: No Cardiovascular Problems: Yes (HTN) High Cholesterol: Yes Chest Pain: No Congestive Heart Failure: No COPD: Yes Diabetes: No Diminished Hearing: No Endocrine: No Fibromyalgia: Yes Gastrointestinal Disorders: Yes (ACID REFLUX, CONSTIPATION) GERD: Yes Genitourinary: No Hepatitis: No Hiatal Hernia: No Hypertension: Yes Immune Disorder: Yes (RHEUMATOID ARTHRITIS, FIBROMYALGIA) Musculoskeletal: Yes ( CHRONIC BACK PAIN) Neurologic: No Psychiatric: No Reproductive: No Respiratory: Yes (COPD) Immunizations Current: Yes Sleep Apnea: No Thyroid Disease: No Ulcer: No ?: Not Menopausal: Yes Past Surgical History Abdominal Surgery: Yes (APPENDECTOMY) Appendectomy: Yes Body Medical Devices: HX OF FIBROMYALGIA Cardiac Surgery: No Ear Surgery: Yes Endocrine Surgery: No Eye Surgery: Yes (SKIP CATARACTS SURGERY) Genitourinary Surgery: Yes (BLADDER SLING) Gynecologic Surgery: Yes (HYSTERECTOMY) Hysterectomy: Yes Neurologic Surgery: Yes Oral Surgery: No Pacemaker: No Thoracic Surgery: No Tonsillectomy: Yes Other Surgery: Yes (REMOVAL OF NASAL POLYPS) Social History Alcohol Use: No Tobacco Use: No Substance Use: No Allergies-Medications (Allergen,Severity, Reaction): Coded Allergies: ceftriaxone (Unverified Allergy, Severe, 08/03/17) cyclobenzaprine (Unverified Allergy, Severe, HEART PROBLEMS, 08/03/17) gabapentin (Unverified Allergy, Severe, RASH, 08/03/17) meloxicam (Unverified Allergy, Severe, RASH, 08/03/17) metronidazole (Unverified Allergy, Severe, 08/03/17) Sulfa (Sulfonamide Antibiotics) (Unverified Allergy, Mild, Swelling, ) cephalexin (Unverified Allergy, Mild, Swelling, 08/03/17) codeine (Unverified Allergy, Mild, NAUSEA/VOMIT, 08/03/17) penicillin G (Unverified Allergy, Mild, Swelling, 08/03/17) *MDRO Multi-Drug Resistant Organism (Verified Allergy, Unknown, 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 hydroxychloroquine (Unverified Allergy, Unknown, 08/03/17) Reported Meds & Prescriptions Reported Meds & Active Scripts Active Reported Amlodipine (Amlodipine Besylate) 10 Mg Tab 10 Mg PO DAILY Vitamin C Tr (Ascorbic Acid) 500 Mg Caper 500 Mg PO DAILY Calcium 600 with Vitamin D (Calcium Carbonate-Cholecalciferol) 600-400 mg-Unit Tab 2 Tab PO BID Prednisone 2.5 Mg Tab 20 Mg PO DAILY Aciphex (Rabeprazole Sodium) 20 Mg Tab 20 Mg PO DAILY Vitamin E 200 Unit Cap 200 Units PO DAILY Tramadol (Tramadol HCl) 50 Mg Tab 50 Mg PO Q8H PRN [place] 3 1200 mg ([place]-3 Fatty Acids) 684 Mg-1,200 Mg Cap 1,200 Mg DAILY Potassium Gluconate 595 Mg (99 Mg) Tab DAILY Vytorin (Ezetimibe-Simvastatin) 10-20 Mg Tab 1 Tab PO HS Multiple Vitamin 1 Tab 1 Tab PO DAILY Lyrica (Pregabalin) 50 Mg Cap 50 Mg PO TID Leflunomide 10 Mg Tab 10 Mg PO DAILY Latanoprost Opth Drops (Latanoprost) 0.005% Drops 1 Drop EACH EYE HS Refrigerate until opened. Amitriptyline (Amitriptyline HCl) 10 Mg Tab 20 Mg PO HS Advair Diskus Inh (Fluticasone-Salmeterol Inh) 500-50 Mcg/Blist Aer 1 Puff INH BID Rinse mouth after use. Celebrex (Celecoxib) 200 Mg Cap 200 Mg PO DAILY Valsartan 320 Mg Tab 160 Mg PO HS Review of Systems Except as stated in HPI: all other systems reviewed are Neg Physical Exam Narrative GENERAL:Well appearing, no acute distress SKIN: Erythema and warmth of the left lower extremity distal to the left knee HEAD: Atraumatic. Normocephalic. EYES: Pupils equal and round. No injection or drainage. ENT: Moist mucous membranes NECK: Trachea midline. CARDIOVASCULAR: Regular rate and rhythm. No murmur appreciated. 2+ pitting edema in the left lower extremity. RESPIRATORY: Clear to auscultation. Breath sounds equal bilaterally. GASTROINTESTINAL: Abdomen soft, non-tender, nondistended. MUSCULOSKELETAL: No obvious deformities. NEUROLOGICAL: Awake and alert. No obvious cranial nerve deficits. Moving all extremities. PSYCHIATRIC: Appropriate mood and affect; insight and judgment normal. Data Data Last Documented VS Vital Signs Date Time Temp Pulse Resp B/P (MAP) Pulse Ox O2 Delivery O2 Flow Rate FiO2 08/03/17 18:00 91 17 123/61 (81) 95 Room Air 08/03/17 15:46 98.3 Orders Orders Complete Blood Count With Diff (08/03/17 17:15) Comprehensive Metabolic Panel (08/03/17 17:15) Iv Access Insert/Monitor (08/03/17 17:15) Westergren Sedimentation Rate (08/03/17 17:15) C-Reactive Protein (Crp) (08/03/17 17:15) Us Leg Venous Doppler (08/03/17 ) Labs Laboratory Tests Test 08/03/17 17:50 White Blood Count 12.5 TH/MM3 Red Blood Count 4.16 MIL/MM3 Hemoglobin 12.9 GM/DL Hematocrit 39.5 % Mean Corpuscular Volume 94.8 FL Mean Corpuscular Hemoglobin 31.0 PG Mean Corpuscular Hemoglobin Concent 32.7 % Red Cell Distribution Width 13.7 % Platelet Count 146 TH/MM3 Mean Platelet Volume 9.4 FL Neutrophils (%) (Auto) 90.1 % Lymphocytes (%) (Auto) 3.3 % Monocytes (%) (Auto) 6.4 % Eosinophils (%) (Auto) 0.1 % Basophils (%) (Auto) 0.1 % Neutrophils # (Auto) 11.3 TH/MM3 Lymphocytes # (Auto) 0.4 TH/MM3 Monocytes # (Auto) 0.8 TH/MM3 Eosinophils # (Auto) 0.0 TH/MM3 Basophils # (Auto) 0.0 TH/MM3 CBC Comment DIFF FINAL Differential Comment Blood Urea Nitrogen 36 MG/DL Creatinine 1.23 MG/DL Random Glucose 471 MG/DL Total Protein 5.7 GM/DL Albumin 2.5 GM/DL Calcium Level 8.7 MG/DL Alkaline Phosphatase 54 U/L Aspartate Amino Transf (AST/SGOT) 13 U/L Alanine Aminotransferase (ALT/SGPT) 30 U/L Total Bilirubin 0.5 MG/DL Sodium Level 132 MEQ/L Potassium Level 4.2 MEQ/L Chloride Level 99 MEQ/L Carbon Dioxide Level 25.0 MEQ/L Anion Gap 8 MEQ/L Estimat Glomerular Filtration Rate 42 ML/MIN C-Reactive Protein 27.00 MG/DL MDM Medical Decision Making Medical Screen Exam Complete: Yes Emergency Medical Condition: Yes Interpretation(s) Afebrile, tachycardic, normotensive Mild leukocytosis Differential Diagnosis Cellulitis, sepsis, DVT, necrotizing fasciitis Narrative Course This is an 86-year-old female who presents to the emergency department with cellulitis of the left lower extremity which has been going on for 2 days. Lab will be obtained and an ultrasound of the lower extremity will be obtained. Given her age and mild leukocytosis she will likely require admission. Disposition will be made by oncoming provider. Razia Ferrari MD Aug 03, 2017 17:45
[2017-08-03 18:00] VITALS: BP 123/61; PULSE 91; RESP 17; O2SAT 95
[2017-08-03 18:29] LABS: AUTOMATED NEUTROPHIL # 11.3 TH/MM3 (1.8-7.7); BASOPHIL % 0.1 % (0.0-2.0); EOSINOPHIL % 0.1 % (0.0-4.0); HEMATOCRIT 39.5 % (35.0-46.0); HEMOGLOBIN 12.9 GM/DL (11.6-15.3); LYMPH % 3.3 % (9.0-44.0); LYMPHOCYTE # 0.4 TH/MM3 (1.0-4.8); MEAN CELL VOLUME 94.8 FL (80.0-100.0); MEAN CORPUSCULAR HGB CONC 32.7 % (32.0-36.0); MEAN PLATELET VOLUME 9.4 FL (7.0-11.0); MONO % 6.4 % (0.0-8.0); MONOCYTE # 0.8 TH/MM3 (0-0.9); NEUT % 90.1 % (16.0-70.0); PLATELET COUNT 146 TH/MM3 (150-450); RED BLOOD COUNT 4.16 MIL/MM3 (4.00-5.30); RED CELL DISTRIBUTION WIDTH 13.7 % (11.6-17.2); WHITE BLOOD COUNT 12.5 TH/MM3 (4.0-11.0)
[2017-08-03 19:03] LABS: ALBUMIN 2.5 GM/DL (3.4-5.0); ALKALINE PHOSPHATASE 54 U/L (45-117); ALT (GPT) 30 U/L (10-53); AST (GOT) 13 U/L (15-37); BLOOD UREA NITROGEN 36 MG/DL (7-18); CALCIUM 8.7 MG/DL (8.5-10.1); CHLORIDE 99 MEQ/L (98-107); CREATININE 1.23 MG/DL (0.50-1.00); GLOMERULAR FILTRATION RATE 42 ML/MIN (>89); SODIUM (NA) 132 MEQ/L (136-145); TOTAL BILIRUBIN ADULT 0.5 MG/DL (0.2-1.0); TOTAL PROTEIN 5.7 GM/DL (6.4-8.2)
[2017-08-03 19:08] LABS: GLUCOSE,RANDOM 471 MG/DL (74-106)
[2017-08-03 19:16] VITALS: BP 144/75; PULSE 97; RESP 16; O2SAT 97
--- NOTE | 2017-08-03 19:26 | RADRPT ---
EXAM DATE/TIME: 08/03/2017 18:56 [facility] COMPARISON: No previous studies available for comparison. INDICATIONS : Left leg swelling. MEDICAL HISTORY : Hypertension. Hypercholesterolemia. Chronic obstructive pulmonary disease. Glaucoma. Neck pain. [address] of hearing. Hyperlipidemia. Asthma. Dyspnea. Gastroesophageal reflux disease. Fibromyalgia. Arthri tis. SURGICAL HISTORY : Tonsillectomy. Appendectomy. Hysterectomy. Bilateral cataract surgery. Polyps removed. Bladder sling . Right knee surgery. Removed skin leison. ENCOUNTER: Initial ACUITY: 1 week PAIN SCORE: 4/10 LOCATION: Left leg. TECHNIQUE: Venous ultrasound of the leg was performed from the inguinal ligament to the proximal calf. Real-palomo e, color Doppler and spectral tracing, compression and augmentation techniques were used. FINDINGS: Echogenic noncompressible material is seen involving the distal superficial femoral vein. This is non occlusive. The remaining venous structures are unremarkable. CONCLUSION: Small focus of nonocclusive thrombus involving the distal superficial femoral vein. Demar Mcdowell Jr., MD on August 03, 2017 at 19:22 Board Certified Radiologist. This report was verified electronically.
--- NOTE | 2017-08-03 20:01 | PD ---
Physical Exam Date Seen by Provider: Aug 03, 2017 Time Seen by Provider: 19:30 Narrative pt has non occlusive thrombus in super femoral vein , redness is all around leg up to the posterior area of left leg , she has elvated WBC 12 and C-reactive 27.00 very elevated . Will do CXR and UA and give Vanco 1 gram and admit for further eval Data Data Last Documented VS Vital Signs Date Time Temp Pulse Resp B/P (MAP) Pulse Ox O2 Delivery O2 Flow Rate FiO2 08/03/17 21:13 85 16 137/65 (89) 98 08/03/17 19:16 Room Air 08/03/17 15:46 98.3 Orders Orders Complete Blood Count With Diff (08/03/17 17:15) Comprehensive Metabolic Panel (08/03/17 17:15) Iv Access Insert/Monitor (08/03/17 17:15) [place] Sedimentation Rate (08/03/17 17:15) C-Reactive Protein (Crp) (08/03/17 17:15) Us Leg Venous Doppler (08/03/17 ) Chest, Pa & Lat (08/03/17 ) Urinalysis - C+S If Indicated (08/03/17 19:44) Vancomycin Inj (Vancomycin Inj) (08/03/17 20:15) Urine Culture (08/03/17 20:50) Admit Order (Ed Use Only) (08/03/17 22:32) Labs Laboratory Tests Test 08/03/17 17:50 08/03/17 20:50 White Blood Count 12.5 TH/MM3 Red Blood Count 4.16 MIL/MM3 Hemoglobin 12.9 GM/DL Hematocrit 39.5 % Mean Corpuscular Volume 94.8 FL Mean Corpuscular Hemoglobin 31.0 PG Mean Corpuscular Hemoglobin Concent 32.7 % Red Cell Distribution Width 13.7 % Platelet Count 146 TH/MM3 Mean Platelet Volume 9.4 FL Neutrophils (%) (Auto) 90.1 % Lymphocytes (%) (Auto) 3.3 % Monocytes (%) (Auto) 6.4 % Eosinophils (%) (Auto) 0.1 % Basophils (%) (Auto) 0.1 % Neutrophils # (Auto) 11.3 TH/MM3 Lymphocytes # (Auto) 0.4 TH/MM3 Monocytes # (Auto) 0.8 TH/MM3 Eosinophils # (Auto) 0.0 TH/MM3 Basophils # (Auto) 0.0 TH/MM3 CBC Comment DIFF FINAL Differential Comment Erythrocyte Sedimentation Rate 31 mm/hr Blood Urea Nitrogen 36 MG/DL Creatinine 1.23 MG/DL Random Glucose 471 MG/DL Total Protein 5.7 GM/DL Albumin 2.5 GM/DL Calcium Level 8.7 MG/DL Alkaline Phosphatase 54 U/L Aspartate Amino Transf (AST/SGOT) 13 U/L Alanine Aminotransferase (ALT/SGPT) 30 U/L Total Bilirubin 0.5 MG/DL Sodium Level 132 MEQ/L Potassium Level 4.2 MEQ/L Chloride Level 99 MEQ/L Carbon Dioxide Level 25.0 MEQ/L Anion Gap 8 MEQ/L Estimat Glomerular Filtration Rate 42 ML/MIN C-Reactive Protein 27.00 MG/DL Urine Color YELLOW Urine Turbidity CLEAR Urine pH 5.5 Urine Specific [place] 1.032 Urine Protein TRACE mg/dL Urine Glucose (UA) 1000 mg/dL Urine Ketones TRACE mg/dL Urine Occult Blood TRACE Urine Nitrite POS Urine Bilirubin NEG Urine Urobilinogen LESS THAN 2.0 MG/DL Urine Leukocyte Esterase NEG Urine RBC LESS THAN 1 /hpf Urine WBC 2 /hpf Urine Squamous Epithelial Cells <1 /hpf Urine Bacteria FEW /hpf Urine Hyaline Casts 1 /lpf Urine Mucus FEW /lpf Microscopic Urinalysis Comment CULTURE INDICATED MDM Supervised Visit with [facility]: No Differential Diagnosis DVT vs cellulitis vs , trauma vs early stasis ulcer , peripheral edema secondary to valvular incompetence . other Narrative Course Patient's ultrasound of her lower extremity does not show an occlusive DVT . The ultrasound shows a nonocclusive thrombus in the superficial femoral vein. Patient has obvious cellulitis going all the way up to the popliteal fossa white count is 12 and her CRP is 27 very elevated I am doing a chest x-ray and a UA to search for any other source of infection and treat her with vancomycin 1 g and admitted her to the medical service for vascular consult. She has a cast from a recent revascularization surgery of her left hand which has greatly improved as per family. Patient has a glucose of 471 but she is on Prednisone which is most likely cause of the elevated glucose as she has no history of diabetes Diagnosis Primary Impression: Cellulitis Qualified Codes: L03.116 - Cellulitis of left lower limb Additional Impression: Hyperglycemia, unspecified Admitting Information Admitting Physician Requests: Gavino Faulkner MD Aug 03, 2017 20:01
[2017-08-03] MEDS ORDERED: VANCOMYCIN INJ 1,000 MG in SODIUM CHLOR 0.9% 250 ML INJ 250 ML IV ONE (20:15)
--- NOTE | 2017-08-03 20:35 | RADRPT ---
EXAM DATE/TIME: 08/03/2017 20:07 [place] COMPARISON: No previous studies available for comparison. INDICATIONS : Swelling in foot. MEDICAL HISTORY : Hypercholesterolemia. Chronic obstructive pulmonary disease. Hypertension, AFIB, Asthma, Pneumon ia. SURGICAL HISTORY : Hysterectomy. Appendectomy. ENCOUNTER: Initial ACUITY: 3 days PAIN SCORE: 0/10 LOCATION: Bilateral chest FINDINGS: PA and lateral views of the chest demonstrate the lungs to be symmetrically aerated without evidence of mass, infiltrate or effusion. The cardiomediastinal contours are unremarkable. Osseous structure s are intact. CONCLUSION: No acute disease. Demar Mcdowell Jr., MD on August 03, 2017 at 20:33 Board Certified Radiologist. This report was verified electronically.
[2017-08-03 21:13] VITALS: BP 137/65; PULSE 85; RESP 16; O2SAT 98
[2017-08-03 22:06] LABS: BACTERIA, URINE FEW /hpf; BILIRUBIN, URINE NEG (NEG); BLOOD, URINE TRACE (NEG); GLUCOSE,URINE 1000 mg/dL (NEG); HYALINE CAST, URINE 1 /lpf (RARE); KETONE, URINE TRACE mg/dL (NEG); MUCUS URINE FEW /lpf (OCC); NITRITE,URINE POS (NEG); PH, URINE 5.5 (5.0-8.5); SQUAMOUS EPITHELIAL CELL URINE <1 /hpf (0-5); URINE COLOR YELLOW (YELLW/STRAW); URINE LEUKOCYTE ESTERASE NEG (NEG)
[2017-08-03] MEDS ORDERED: BISACODYL 10 MG SUPP RECTAL PRN (22:30)
[2017-08-03] MEDS ORDERED: MORPHINE SULFATE 2 MG/ML INJ IV PUSH PRN (22:30)
[2017-08-03] MEDS ORDERED: LACTULOSE SYRUP 20 GM/30 ML CUP PO PRN (22:30)
[2017-08-03] MEDS ORDERED: SENNOSIDES 8.6 MG TAB PO PRN (22:30)
[2017-08-03] MEDS ORDERED: ONDANSETRON HCL 4 MG/2 ML VIAL IVP PRN (22:30)
[2017-08-03] MEDS ORDERED: SODIUM CHLORIDE 0.9% FLUSH 10 ML FLUSH IV FLUSH PRN (22:30)
[2017-08-03] MEDS ORDERED: Vancomycin Consult Pharmacy 1 EA OTHER SCH (22:30)
[2017-08-03] MEDS ORDERED: ACETAMINOPHEN 325 MG TAB PO PRN (22:30)
[2017-08-03] MEDS ORDERED: MAGNESIUM HYDROXIDE SUSP 30 ML CUP PO PRN (22:30)
--- NOTE | 2017-08-03 22:41 | HHI.HP ---
HPI Service [facility] Primary Care Physician Tee Watson M.D. Admission Diagnosis cellulitis Diagnoses: (1) Left leg cellulitis Diagnosis: Principal (2) Non-occlusive thrombus Diagnosis: Principal (3) Renal insufficiency Diagnosis: Principal (4) DM (diabetes mellitus) Diagnosis: Principal Travel History International Travel<30 Days: No Contact w/Intl Traveler <30 Da: No Traveled to Known Affected Are: No History of Present Illness This is an 86-year-old female with a PMH of Rheumatoid Arthritis, Raynaud's Disease, A. fib, HTN, COPD, Fibromyalgia, h/o Left Radial Artery Occlusion, s/p LUE Angio 07/13/17 and Hyperlipidemia who was referred to the ER by [facility] for evaluation of LLE redness/swelling. Pt has been following w/ [facility]ound [facility] for RLE wound and Left 2nd Finger, now well-healing. Per patient, LLE redness/swelling started 2 days ago, now w/ progressive worsening, +pain, constant, throbbing, 6-7/10, non-radiating, worse w/ movement. Denies fever, chills or recent injury/trauma. Reports recent Left Hand surgery approx 10 days ago. On arrival, BP 123/61, HR 91, O2 sat 95% on RA, Afebrile. WBC 12.5. Platelets 146, previously 235 on 07/13/17. Creatinine 1.23, previous 1.13 on 07/13/17. BS 471. UA positive nitrites and bacteriuria. CXR with no acute findings. LLE Doppler small focus of nonocclusive thrombus involving distal superficial femoral vein. S/p Vanc in ER. Review of Systems Except as stated in HPI: all other systems reviewed are Neg ROS: 14 point review of systems otherwise negative. Past Family Social History Past Medical History PMH: Rheumatoid Arthritis, Raynaud's Disease, A. fib, HTN, COPD, Fibromyalgia, h/o Left Radial Artery Occlusion, s/p LUE Angio 07/13/17 and Hyperlipidemia Past Surgical History PAST SURGICAL HISTORY: Appendectomy, Fibromyalgia, Bilateral Cataract Surgery, Bladder Sling, Hysterectomy Tonsillectomy, Nasal Polyp Removal Allergies: Coded Allergies: ceftriaxone (Unverified Allergy, Severe, 08/03/17) cyclobenzaprine (Unverified Allergy, Severe, HEART PROBLEMS, 08/03/17) gabapentin (Unverified Allergy, Severe, RASH, 08/03/17) meloxicam (Unverified Allergy, Severe, RASH, 08/03/17) metronidazole (Unverified Allergy, Severe, 08/03/17) Sulfa (Sulfonamide Antibiotics) (Unverified Allergy, Mild, Swelling, ) cephalexin (Unverified Allergy, Mild, Swelling, 08/03/17) codeine (Unverified Allergy, Mild, NAUSEA/VOMIT, 08/03/17) penicillin G (Unverified Allergy, Mild, Swelling, 08/03/17) *MDRO Multi-Drug Resistant Organism (Verified Allergy, Unknown, 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 No h/o DM or CAD Social History PAST SOCIAL HISTORY: Negative for alcohol, tobacco or drugs. Physical Exam Vital Signs Vital Signs Date Time Temp Pulse Resp B/P (MAP) Pulse Ox O2 Delivery O2 Flow Rate FiO2 08/03/17 21:13 85 16 137/65 (89) 98 08/03/17 19:16 97 16 144/75 (98) 97 Room Air 08/03/17 18:00 91 17 123/61 (81) 95 Room Air 08/03/17 15:46 98.3 108 14 129/61 (83) 97 Physical Exam PE: GENERAL: Very pleasant elderly white female in no acute distress. HEENT: PERRLA, EOMI. No scleral icterus or conjunctival pallor. No lid lag or facial droop. CARDIOVASCULAR: Regular rate and rhythm. No obvious murmurs to auscultation. No chest tenderness to palpation. RESPIRATORY: No obvious rhonchi or wheezing. Clear to auscultation. Breath sounds equal bilaterally. GASTROINTESTINAL: Abdomen soft, non-tender, nondistended. BS normal. MUSCULOSKELETAL: Extremities without clubbing, cyanosis, or edema. No obvious deformities. Left hand splint, +eschar left 2nd finger, LLE w/ significant circumferential erythema, +edema, +warmth. Pulses intact. NEUROLOGICAL: Awake, alert and oriented x4. No focal neurologic deficits. Moving both upper and lower extremities spontaneously. Laboratory Laboratory Tests Test 08/03/17 17:50 08/03/17 20:50 White Blood Count 12.5 Red Blood Count 4.16 Hemoglobin 12.9 Hematocrit 39.5 Mean Corpuscular Volume 94.8 Mean Corpuscular Hemoglobin 31.0 Mean Corpuscular Hemoglobin Concent 32.7 Red Cell Distribution Width 13.7 Platelet Count 146 Mean Platelet Volume 9.4 Neutrophils (%) (Auto) 90.1 Lymphocytes (%) (Auto) 3.3 Monocytes (%) (Auto) 6.4 Eosinophils (%) (Auto) 0.1 Basophils (%) (Auto) 0.1 Neutrophils # (Auto) 11.3 Lymphocytes # (Auto) 0.4 Monocytes # (Auto) 0.8 Eosinophils # (Auto) 0.0 Basophils # (Auto) 0.0 CBC Comment DIFF FINAL Differential Comment Erythrocyte Sedimentation Rate 31 Blood Urea Nitrogen 36 Creatinine 1.23 Random Glucose 471 Total Protein 5.7 Albumin 2.5 Calcium Level 8.7 Alkaline Phosphatase 54 Aspartate Amino Transf (AST/SGOT) 13 Alanine Aminotransferase (ALT/SGPT) 30 Total Bilirubin 0.5 Sodium Level 132 Potassium Level 4.2 Chloride Level 99 Carbon Dioxide Level 25.0 Anion Gap 8 Estimat Glomerular Filtration Rate 42 C-Reactive Protein 27.00 Urine Color YELLOW Urine Turbidity CLEAR Urine pH 5.5 Urine Specific [place] 1.032 Urine Protein TRACE Urine Glucose (UA) 1000 Urine Ketones TRACE Urine Occult Blood TRACE Urine Nitrite POS Urine Bilirubin NEG Urine Urobilinogen LESS THAN 2.0 Urine Leukocyte Esterase NEG Urine RBC LESS THAN 1 Urine WBC 2 Urine Squamous Epithelial Cells <1 Urine Bacteria FEW Urine Hyaline Casts 1 Urine Mucus FEW Microscopic Urinalysis Comment CULTURE INDICATED Date/Time Source Procedure Growth Status 08/03/17 20:50 Urine Clean Catch Urine Culture Pending Received Result Diagram: 08/03/17 17508/03/17 175 Caprini VTE Risk Assessment Caprini VTE Risk Assessment: Mod/High Risk (score >= 2) Caprini Risk Assessment Model Point Value = 1 Point Value = 2 Point Value = 3 Point Value = 5 Age 41-60 Minor surgery BMI > 25 kg/m2 Swollen legs Varicose veins or History of unexplained or recurrent spontaneous Oral contraceptives or hormone replacement Sepsis (< 1 month) Serious lung disease, including pneumonia (< 1 month) Abnormal pulmonary function Acute myocardial infarction Congestive heart failure (< 1 month) History of inflammatory bowel disease Medical patient at bed rest Age 61-74 Arthroscopic surgery Major open surgery (> 45 min) Laparoscopic surgery (> 45 min) Malignancy Confined to bed (> 72 hours) Immobilizing plaster cast Central venous access Age >= 75 History of VTE Family history of VTE Factor V Leiden Prothrombin [id number] Lupus anticoagulant Anticardiolipin antibodies Elevated serum homocysteine Heparin-induced thrombocytopenia Other congenital or acquired thrombophilia Stroke (< 1 month) Elective arthroplasty Hip, pelvis, or leg fracture Acute spinal cord injury (< 1 month) Prophylaxis Regimen Total Risk Factor Score Risk Level Prophylaxis Regimen 0-1 Low Early ambulation 2 Moderate Order ONE of the following: *Sequential Compression Device (SCD) *Heparin 5000 units SQ BID 3-4 Higher Order ONE of the following medications: *Heparin 5000 units SQ TID *Enoxaparin/Lovenox 40 mg SQ daily (WT < 150 kg, CrCl > 30 mL/min) *Enoxaparin/Lovenox 30 mg SQ daily (WT < 150 kg, CrCl > 10-29 mL/min) *Enoxaparin/Lovenox 30 mg SQ BID (WT < 150 kg, CrCl > 30 mL/min) AND/OR *Sequential Compression Device (SCD) 5 or more Highest Order ONE of the following medications: *Heparin 5000 units SQ TID (Preferred with Epidurals) *Enoxaparin/Lovenox 40 mg SQ daily (WT < 150 kg, CrCl > 30 mL/min) *Enoxaparin/Lovenox 30 mg SQ daily (WT < 150 kg, CrCl > 10-29 mL/min) *Enoxaparin/Lovenox 30 mg SQ BID (WT < 150 kg, CrCl > 30 mL/min) AND *Sequential Compression Device (SCD) Assessment and Plan Problem List: (1) Left leg cellulitis ICD Code: L03.116 - Cellulitis of left lower limb (2) Non-occlusive thrombus ICD Code: I82.91 - Chronic embolism and thrombosis of unspecified vein (3) Renal insufficiency ICD Code: N28.9 - Disorder of kidney and ureter, unspecified (4) DM (diabetes mellitus) ICD Code: E11.9 - Type 2 diabetes mellitus without complications Assessment and Plan A/P: 1. LLE Cellulitis: progressive circumferential erythema/edema x2 days, WBC 12.5, s/p Vanc in ER, will continue w/ Vanc, add Azactam, follow up cultures. Wound Consult for further evaluation of LLE and management of Left 2nd finger/ RLE wounds. 2. Non-Occlusive DVT: Doppler LLE w/ non-occlusive DVT superficial femoral vein, unlikely cause of above edema, in light of multiple comorbidities and h/o previous occlusions w/ recent surgical intervention, will start on treatment w/ Lovenox 70mg sq bid. 3. Renal Insufficiency: Acute on Chronic. Creatinine 1.23, previously 1.13 on 07/13/17. UA positive for nitrites, mild bacteriuria, will start on treatment with IV Abx, IVF for hydration, repeat labs in am. 4. DM: Uncontrolled. BS 471. Start Sliding Scale w/ Accu-Cheks. Check Hgb A1c. 5. DVT Prophylaxis: Lovenox 6. Social work for d/c planning as needed. 7. Labs/records/imaging reviewed by me, case discussed at length w/ ER physician. Physician Certification 2 Midnight Certification Type: Admission for Inpatient Services Order for Inpatient Services The services are ordered in accordance with Medicare regulations or non- Medicare payer requirements, as applicable. In the case of services not specified as inpatient-only, they are appropriately provided as inpatient services in accordance with the 2-midnight benchmark. Estimated LOS (days): 2 days is the estimated time the patient will need to remain in the hospital, assuming treatment plan goals are met and no additional complications. Post-Hospital Plan: Not yet determined Queenie Gallo MD Aug 03, 2017 22:41
[2017-08-03] MEDS ORDERED: GLUCAGON 1 MG/ML VIAL OTHER PRN (22:45)
[2017-08-03] MEDS ORDERED: DEXTROSE 50% IN WATER 50 ML VIAL(D50) IV PUSH PRN (22:45)
[2017-08-03] MEDS ORDERED: INSULIN HUMAN REGULAR 1,000 UNITS/10 ML VIAL IV PUSH ONE (23:00)
[2017-08-03] MEDS: ENOXAPARIN SODIUM 80 MG/0.8 ML SYRINGE SQ SCH (23:29)
[2017-08-04 00:01] VITALS: BP 121/73; PULSE 76; RESP 18; TEMP 97.6; O2SAT 99
[2017-08-04] MEDS ORDERED: AMITRIPTYLINE HCL 10 MG TAB PO ONE (00:45)
[2017-08-04] MEDS: LATANOPROST 0.005% OPHT SOLN 2.5 ML BTL EACH EYE SCH ×2 (00:53→21:53)
[2017-08-04] MEDS: VALSARTAN 160 MG TAB PO SCH ×2 (00:53→21:48)
[2017-08-04] MEDS: AZTREONAM INJ 1,000 MG in SODIUM CHLORIDE 0.9% INJ 100 ML IV SCH ×4 (00:54→23:27)
[2017-08-04] MEDS: traMADol HCL 50 MG TAB PO PRN ×3 (00:56→17:32)
[2017-08-04 06:00] VITALS: BP 99/54; PULSE 82; RESP 17; TEMP 98; O2SAT 95
[2017-08-04 07:54] LABS: AUTOMATED NEUTROPHIL # 8.9 TH/MM3 (1.8-7.7); BASOPHIL % 0.2 % (0.0-2.0); EOSINOPHIL # 0.1 TH/MM3 (0-0.4); EOSINOPHIL % 1.1 % (0.0-4.0); HEMATOCRIT 35.2 % (35.0-46.0); HEMOGLOBIN 11.7 GM/DL (11.6-15.3); LYMPH % 7.3 % (9.0-44.0); LYMPHOCYTE # 0.8 TH/MM3 (1.0-4.8); MEAN CORPUSCULAR HEMOGLOBIN 30.8 PG (27.0-34.0); MEAN CORPUSCULAR HGB CONC 33.1 % (32.0-36.0); MEAN PLATELET VOLUME 9.5 FL (7.0-11.0); MONO % 5.7 % (0.0-8.0); MONOCYTE # 0.6 TH/MM3 (0-0.9); NEUT % 85.7 % (16.0-70.0); PLATELET COUNT 143 TH/MM3 (150-450); RED BLOOD COUNT 3.79 MIL/MM3 (4.00-5.30); RED CELL DISTRIBUTION WIDTH 13.4 % (11.6-17.2); WHITE BLOOD COUNT 10.4 TH/MM3 (4.0-11.0)
[2017-08-04] MEDS: INSULIN ASPART SUPPLEMENTAL SCALE SQ SCH ×4 (08:00→21:48)
[2017-08-04 08:17] VITALS: BP 115/59; PULSE 85; RESP 20; TEMP 98.5; O2SAT 94
[2017-08-04] MEDS: MULTIVITAMIN TAB PO SCH (08:19)
[2017-08-04] MEDS: PREGABALIN 25 MG CAP PO SCH ×3 (08:19→17:32)
[2017-08-04] MEDS: predniSONE 20 MG TAB PO SCH (08:19)
[2017-08-04] MEDS: PANTOPRAZOLE SOD 20 MG DELAYED RELEASE TAB PO SCH (08:19)
[2017-08-04] MEDS: DOCUSATE SODIUM 50 MG/SENNA 8.6 MG TAB PO SCH ×2 (08:19→21:00)
[2017-08-04] MEDS: ARAVA PO SCH (08:22)
[2017-08-04 08:52] LABS: ALKALINE PHOSPHATASE 55 U/L (45-117); ALT (GPT) 23 U/L (10-53); AST (GOT) 6 U/L (15-37); BLOOD UREA NITROGEN 26 MG/DL (7-18); CALCIUM 8.5 MG/DL (8.5-10.1); CHLORIDE 104 MEQ/L (98-107); CREATININE 0.73 MG/DL (0.50-1.00); GLOMERULAR FILTRATION RATE 76 ML/MIN (>89); GLUCOSE,RANDOM 112 MG/DL (74-106); SODIUM (NA) 138 MEQ/L (136-145); TOTAL BILIRUBIN ADULT 0.4 MG/DL (0.2-1.0); TOTAL PROTEIN 5.1 GM/DL (6.4-8.2)
[2017-08-04] MEDS: SODIUM CHLORIDE 0.9% FLUSH 10 ML FLUSH IV FLUSH SCH ×2 (09:00→21:50)
[2017-08-04] MEDS: BUDESONIDE-FORMOTEROL 160/4.5 MCG INHALER INH SCH ×2 (09:00→22:03)
[2017-08-04] MEDS ORDERED: FATTY ACIDS SCH (09:00)
[2017-08-04] MEDS ORDERED: OMEGA SCH (09:00)
[2017-08-04] MEDS ORDERED: ENOX60IN SQ (11:26)
[2017-08-04] MEDS ORDERED: WARF-20 PO (11:26)
[2017-08-04] MEDS: ENOXAPARIN SODIUM 80 MG/0.8 ML SYRINGE SQ SCH ×2 (11:28→22:04)
--- NOTE | 2017-08-04 11:37 | HHI.FF ---
Face to Face Verification Diagnosis: (1) Generalized weakness (2) Non-occlusive thrombus (3) Renal insufficiency Physical Therapy Order: Evaluate and Treat Home Health Nursing Instructions: need INR checked on 08/06, forward to PCP, Dr Tee Watson. need elevation of LLE, with loose mina wraps LLE for treatment of edema. I have seen patient Natalia Varghese on 08/04/17. My clinical findings support the need for the requested home health care services because: Limited ability to care for self I certify that my clinical findings support that this patient is homebound because: Unsafe to leave home unassisted Josesito Forman MD Aug 04, 2017 11:37
[2017-08-04] MEDS: POVIDONE IODINE 10% SOLN 480 ML BTL TOPICAL SCH (11:55)
[2017-08-04 12:03] VITALS: BP 114/56; PULSE 102; RESP 20; TEMP 97.6; O2SAT 96
[2017-08-04 12:14] LABS: HEMOGLOBIN A1C 8.6 % (4.3-6.0)
[2017-08-04] MEDS ORDERED: LORazepam 1 MG TAB PO PRN (15:15)
--- NOTE | 2017-08-04 15:18 | HHI.PR ---
Subjective Remarks Patient seen this morning around 11 AM. Says she is feeling all right. Denies any chest pain or shortness of breath. Says she does not feel comfortable going home, is too weak, and unable to take care of herself. Objective Vital Signs Date Time Temp Pulse Resp B/P (MAP) Pulse Ox O2 Delivery O2 Flow Rate FiO2 08/04/17 12:03 97.6 102 20 114/56 (75) 96 08/04/17 08:17 98.5 85 20 115/59 (77) 94 08/04/17 06:00 98.0 82 17 99/54 (69) 95 08/04/17 01:58 18 08/04/17 00:01 97.6 76 18 121/73 (89) 99 08/03/17 21:13 85 16 137/65 (89) 98 08/03/17 19:16 97 16 144/75 (98) 97 Room Air 08/03/17 18:00 91 17 123/61 (81) 95 Room Air 08/03/17 15:46 98.3 108 14 129/61 (83) 97 I/O 08/03/17 08/03/17 08/03/17 08/04/17 08/04/17 08/04/17 07:00 15:00 23:00 07:00 15:00 23:00 Intake Total 250 ml 500 ml Balance 250 ml 500 ml Intake Oral 400 ml IV Total 250 ml 100 ml # Voids 3 1 # Bowel Movements 0 Result Diagram: 08/04/17 0631 08/04/17 0631 Objective Remarks GENERAL: Lying in bed. Appears comfortable. SKIN: Warm and dry. HEAD: Normocephalic. EYES: No scleral icterus. No injection or drainage. NECK: Supple, trachea midline. No JVD or lymphadenopathy. CARDIOVASCULAR: Regular rate and rhythm without murmurs, gallops, or rubs. RESPIRATORY: Breath sounds equal bilaterally. No accessory muscle use. GASTROINTESTINAL: Abdomen soft, non-tender, nondistended. MUSCULOSKELETAL: No cyanosis. Patient with 2+ left lower extremity edema. Erythema, warmth of left lower extremity. No abrasions are source of infection noticed. Left hand with dressing in place. Left first and second digits with distal what appears to be early g dry angrene -patient says this is not changed much over the past few days. BACK: Nontender without obvious deformity. No CVA tenderness. A/P Assessment and Plan //LLE Cellulitis: progressive circumferential erythema/edema x2 days, WBC 12.5 , s/p Vanc in ER, will continue w/ Vanc, add Azactam, follow up cultures. Wound Consult for further evaluation of LLE and management of Left 2nd finger/ RLE wounds. -Continue antibiotics for left lower extremity cellulitis. We'll discuss with Dr. Paz on Sunday. //Non-Occlusive DVT: Doppler LLE w/ non-occlusive DVT superficial femoral vein , unlikely cause of above edema, in light of multiple comorbidities and h/o previous occlusions w/ recent surgical intervention, will start on treatment w/ Lovenox 70mg sq bid. -Continue on Lovenox with warfarin. //Renal Insufficiency: Acute on Chronic. Creatinine 1.23, previously 1.13 on 07/13/17. UA positive for nitrites, mild bacteriuria, will start on treatment with IV Abx, IVF for hydration, repeat labs in am. = Creatinine 0.73. Much improved. // DM: Uncontrolled. BS 471. Start Sliding Scale w/ Accu-Cheks. Check Hgb A1c. = A1c 8.6. Glucose in the 300s (. We'll switch to diabetic diet. Start twice daily Levemir. A1c 8.6.. We'll order diabetic teaching. She may benefit from insulin regimen at home. //DVT Prophylaxis: Lovenox Discharge Planning PT consult pending. Josesito Forman MD Aug 04, 2017 15:18
[2017-08-04 15:51] VITALS: BP 100/51; PULSE 107; RESP 18; TEMP 98.9; O2SAT 96
[2017-08-04 17:41] LABS: INTERNATIONAL NORMALIZED RATIO 0.9 RATIO; PROTHROMBIN TIME - PATIENT 9.6 SEC (9.8-11.6)
[2017-08-04] MEDS ORDERED: WARFARIN SOD 3 MG TAB PO ONE (18:00)
[2017-08-04 20:00] VITALS: BP 118/67; PULSE 119; RESP 18; TEMP 98.9; O2SAT 96
[2017-08-04] MEDS ORDERED: NON-FORMULARY DRUG (Ezetimibe-Simvastatin (Vytorin) 1 TAB) PO SCH (21:00)
[2017-08-04] MEDS: INSULIN DETEMIR 100 UNITS/ML VIAL SQ SCH (21:48)
[2017-08-04] MEDS: EZETIMIBE 10 MG TAB PO SCH (21:48)
[2017-08-04] MEDS: PRAVASTATIN SOD 40 MG TAB PO SCH (21:49)
[2017-08-04] MEDS: AMITRIPTYLINE HCL 10 MG TAB PO SCH (22:03)
[2017-08-05 00:38] VITALS: BP 115/57; PULSE 107; RESP 18; TEMP 99.1; O2SAT 96
[2017-08-05 04:51] VITALS: BP 119/64; PULSE 87; RESP 18; TEMP 98.3; O2SAT 95
[2017-08-05] MEDS: AZTREONAM INJ 1,000 MG in SODIUM CHLORIDE 0.9% INJ 100 ML IV SCH ×2 (07:09→16:05)
[2017-08-05 07:48] LABS: CREATININE 0.92 MG/DL (0.50-1.00)
[2017-08-05 08:34] VITALS: BP 107/55; PULSE 97; RESP 20; TEMP 98.2; O2SAT 95
[2017-08-05] MEDS ORDERED: VANCOMYCIN 1,000 MG/NS 250 ML IV SCH ×2 (09:00)
[2017-08-05] MEDS: POVIDONE IODINE 10% SOLN 480 ML BTL TOPICAL SCH (09:00)
[2017-08-05] MEDS: BUDESONIDE-FORMOTEROL 160/4.5 MCG INHALER INH SCH ×2 (09:01→21:30)
[2017-08-05] MEDS: INSULIN ASPART SUPPLEMENTAL SCALE SQ SCH ×4 (09:01→21:49)
[2017-08-05] MEDS: SODIUM CHLORIDE 0.9% FLUSH 10 ML FLUSH IV FLUSH SCH ×2 (09:01→21:30)
[2017-08-05] MEDS: ARAVA PO SCH (09:02)
[2017-08-05] MEDS: DOCUSATE SODIUM 50 MG/SENNA 8.6 MG TAB PO SCH ×2 (09:02→21:29)
[2017-08-05] MEDS: predniSONE 20 MG TAB PO SCH (09:02)
[2017-08-05] MEDS: PANTOPRAZOLE SOD 20 MG DELAYED RELEASE TAB PO SCH (09:02)
[2017-08-05] MEDS: PREGABALIN 25 MG CAP PO SCH ×4 (09:02→18:49)
[2017-08-05] MEDS: INSULIN DETEMIR 100 UNITS/ML VIAL SQ SCH ×2 (09:03→21:49)
[2017-08-05] MEDS: MULTIVITAMIN TAB PO SCH (09:03)
[2017-08-05 13:22] VITALS: BP 124/68; PULSE 108; RESP 20; TEMP 98.9; O2SAT 97
[2017-08-05] MEDS: ENOXAPARIN SODIUM 80 MG/0.8 ML SYRINGE SQ SCH ×2 (13:25→22:30)
--- NOTE | 2017-08-05 14:19 | HHI.PR ---
Subjective Remarks She says she is feeling all right today. Denies any chest pain or shortness of breath. Reports leg is feeling a little better. Still painful to walk on it. Objective Vital Signs Date Time Temp Pulse Resp B/P (MAP) Pulse Ox O2 Delivery O2 Flow Rate FiO2 08/05/17 13:22 98.9 108 20 124/68 (86) 97 08/05/17 10:02 18 08/05/17 08:34 98.2 97 20 107/55 (72) 95 08/05/17 04:51 98.3 87 18 119/64 (82) 95 08/05/17 00:38 99.1 107 18 115/57 (76) 96 08/04/17 20:00 98.9 119 18 118/67 (84) 96 08/04/17 15:51 98.9 107 18 100/51 (67) 96 I/O 08/04/17 08/04/17 08/04/17 08/05/17 08/05/17 08/05/17 07:00 15:00 23:00 07:00 15:00 23:00 Intake Total 500 ml 880 ml 100 ml Output Total 600 ml Balance 500 ml 280 ml 100 ml Intake Oral 400 ml 880 ml IV Total 100 ml 100 ml Output Urine Total 600 ml # Voids 3 1 3 # Bowel Movements 0 2 Result Diagram: 08/04/17 0631 08/05/17 0651 Objective Remarks GENERAL: Lying in bed. Appears comfortable. SKIN: Warm and dry. HEAD: Normocephalic. EYES: No scleral icterus. No injection or drainage. NECK: Supple, trachea midline. No JVD or lymphadenopathy. CARDIOVASCULAR: Regular rate and rhythm without murmurs, gallops, or rubs. RESPIRATORY: Breath sounds equal bilaterally. No accessory muscle use. GASTROINTESTINAL: Abdomen soft, non-tender, nondistended. MUSCULOSKELETAL: No cyanosis. Patient with 2+ left lower extremity edema. Erythema, warmth of left lower extremity. No abrasions are source of infection noticed. Left hand with dressing in place. Left first and second digits with distal what appears to be early g dry angrene -patient says this is not changed much over the past few days. BACK: Nontender without obvious deformity. No CVA tenderness. A/P Assessment and Plan //LLE Cellulitis: progressive circumferential erythema/edema x2 days, WBC 12.5 , s/p Vanc in ER, will continue w/ Vanc, add Azactam, follow up cultures. Wound Consult for further evaluation of LLE and management of Left 2nd finger/ RLE wounds. -Continue antibiotics for left lower extremity cellulitis. We'll discuss with Dr. Paz on Sunday. //Left lower extremity Non-Occlusive DVT: Doppler LLE w/ non-occlusive DVT superficial femoral vein, unlikely cause of above edema, in light of multiple comorbidities and h/o previous occlusions w/ recent surgical intervention, will start on treatment w/ Lovenox 70mg sq bid. -Continue on Lovenox with warfarin. //UTI. Gram-negative yolande on urinalysis. Follow-up cultures. Continue antibiotics. //Renal Insufficiency: Acute on Chronic. Creatinine 1.23, previously 1.13 on 07/13/17. UA positive for nitrites, mild bacteriuria, will start on treatment with IV Abx, IVF for hydration, repeat labs in am. = Creatinine 0.73. Much improved. // DM: Uncontrolled. BS 471. Start Sliding Scale w/ Accu-Cheks. Check Hgb A1c. = A1c 8.6. Glucose in the 300s (. We'll switch to diabetic diet. Start twice daily Levemir. A1c 8.6.. We'll order diabetic teaching. She may benefit from insulin regimen at home. //DVT Prophylaxis: Lovenox Discharge Planning PT recommends rehabilitation. OT consult ordered and pending. -Pending urine culture sensitivities. -Patient will go on warfarin with Lovenox bridge. -We'll need follow-up with wound care for left hand. Josesito Forman MD Aug 05, 2017 14:19
[2017-08-05 16:01] LABS: INTERNATIONAL NORMALIZED RATIO 0.9 RATIO; PROTHROMBIN TIME - PATIENT 9.1 SEC (9.8-11.6)
[2017-08-05] MEDS: WARFARIN SOD 3 MG TAB PO SCH (16:40)
[2017-08-05 17:20] VITALS: BP 134/95; PULSE 116; RESP 18; TEMP 98.6; O2SAT 97
[2017-08-05 20:25] VITALS: BP 128/70; PULSE 72; RESP 20; TEMP 98.2; O2SAT 98
[2017-08-05] MEDS ORDERED: VALSARTAN 80 MG TAB PO SCH (21:00)
[2017-08-05] MEDS: AMITRIPTYLINE HCL 10 MG TAB PO SCH (21:29)
[2017-08-05] MEDS: EZETIMIBE 10 MG TAB PO SCH (21:29)
[2017-08-05] MEDS: traMADol HCL 50 MG TAB PO PRN (21:29)
[2017-08-05] MEDS: PRAVASTATIN SOD 40 MG TAB PO SCH (21:29)
[2017-08-05] MEDS: LATANOPROST 0.005% OPHT SOLN 2.5 ML BTL EACH EYE SCH (21:30)
[2017-08-06] MEDS: AZTREONAM INJ 1,000 MG in SODIUM CHLORIDE 0.9% INJ 100 ML IV SCH ×2 (00:02→07:30)
[2017-08-06 00:49] VITALS: BP 116/59; PULSE 92; RESP 18; TEMP 97.7; O2SAT 95
[2017-08-06 05:32] VITALS: BP 134/66; PULSE 92; RESP 18; TEMP 97.7; O2SAT 96
[2017-08-06 08:00] VITALS: BP 135/70; PULSE 96; RESP 16; TEMP 97.7; O2SAT 95
[2017-08-06] MEDS: POVIDONE IODINE 10% SOLN 480 ML BTL TOPICAL SCH (09:00)
[2017-08-06] MEDS: SODIUM CHLORIDE 0.9% FLUSH 10 ML FLUSH IV FLUSH SCH (09:00)
[2017-08-06 09:08] LABS: PROTHROMBIN TIME - PATIENT 10.1 SEC (9.8-11.6)
[2017-08-06] MEDS: INSULIN DETEMIR 100 UNITS/ML VIAL SQ SCH (09:38)
[2017-08-06] MEDS: INSULIN ASPART SUPPLEMENTAL SCALE SQ SCH ×3 (09:38→17:38)
[2017-08-06] MEDS: PANTOPRAZOLE SOD 20 MG DELAYED RELEASE TAB PO SCH (09:38)
[2017-08-06] MEDS: predniSONE 20 MG TAB PO SCH (09:40)
[2017-08-06] MEDS: ENOXAPARIN SODIUM 80 MG/0.8 ML SYRINGE SQ SCH (09:40)
[2017-08-06] MEDS: MULTIVITAMIN TAB PO SCH (09:40)
[2017-08-06] MEDS: BUDESONIDE-FORMOTEROL 160/4.5 MCG INHALER INH SCH (09:40)
[2017-08-06] MEDS: DOCUSATE SODIUM 50 MG/SENNA 8.6 MG TAB PO SCH (09:42)
--- NOTE | 2017-08-06 10:45 | HHI.PR ---
Subjective Remarks Patient says she is feeling all right. Denies any chest pain or shortness of breath. She is been trying to walk, but left leg gets edematous if she walks on it. Objective Vital Signs Date Time Temp Pulse Resp B/P (MAP) Pulse Ox O2 Delivery O2 Flow Rate FiO2 08/06/17 08:00 97.7 96 16 135/70 (91) 95 08/06/17 05:32 97.7 92 18 134/66 (88) 96 08/06/17 00:49 97.7 92 18 116/59 (78) 95 08/05/17 20:25 98.2 72 20 128/70 (89) 98 08/05/17 18:09 18 08/05/17 17:20 98.6 116 18 134/95 (108) 97 08/05/17 13:22 98.9 108 20 124/68 (86) 97 I/O 08/05/17 08/05/17 08/05/17 08/06/17 08/06/17 08/06/17 07:00 15:00 23:00 07:00 15:00 23:00 Intake Total 100 ml 100 ml 720 ml Balance 100 ml 100 ml 720 ml Intake Oral 720 ml IV Total 100 ml 100 ml # Voids 3 Result Diagram: 08/04/17 0631 08/05/17 0651 Objective Remarks GENERAL: Lying in bed. Appears comfortable. SKIN: Warm and dry. HEAD: Normocephalic. EYES: No scleral icterus. No injection or drainage. NECK: Supple, trachea midline. No JVD or lymphadenopathy. CARDIOVASCULAR: Regular rate and rhythm without murmurs, gallops, or rubs. RESPIRATORY: Breath sounds equal bilaterally. No accessory muscle use. GASTROINTESTINAL: Abdomen soft, non-tender, nondistended. MUSCULOSKELETAL: No cyanosis. Patient with 2+ left lower extremity edema. Continues edematous, with blanching discoloration. No abrasions orsource of infection noticed. Left hand with dressing in place. Left first and second digits with distal what appears to be early g dry angrene -patient says this is not changed much over the past few days. This has not changed here. BACK: Nontender without obvious deformity. No CVA tenderness. A/P Assessment and Plan //LLE Cellulitis: progressive circumferential erythema/edema x2 days, WBC 12.5 , s/p Vanc in ER, will continue w/ Vanc, add Azactam, follow up cultures. Wound Consult for further evaluation of LLE and management of Left 2nd finger/ RLE wounds. -This is not appear to be left lower extremity cellulitis. Venous pooling of blood when she stands. discontinue antibiotics. //Left lower extremity Non-Occlusive DVT: Doppler LLE w/ non-occlusive DVT superficial femoral vein, unlikely cause of above edema, in light of multiple comorbidities and h/o previous occlusions w/ recent surgical intervention, will start on treatment w/ Lovenox 70mg sq bid. -Continue on Lovenox with warfarin. = Discussed with nursing. Pino wraps when standing. Elevate legs as able. //UTI. Gram-negative yolande on urinalysis. Follow-up cultures. Continue antibiotics. = Patient denies ever having dysuria. Only 2 white blood cells on urinalysis. Patient is received aztreonam IV from midnight the morning of 08/04 until now. No further need for treatment. //Renal Insufficiency: Acute on Chronic. Creatinine 1.23, previously 1.13 on 07/13/17. UA positive for nitrites, mild bacteriuria, will start on treatment with IV Abx, IVF for hydration, repeat labs in am. = Resolved. //Steroid-induced diabetes. - Uncontrolled. BS 47 on admission 1. Start Sliding Scale w/ Accu-Cheks. Check Hgb A1c. = A1c 8.6. Glucose in the 300s (. We'll switch to diabetic diet. Start twice daily Levemir. A1c 8.6.. We'll order diabetic teaching. She may benefit from insulin regimen at home. //DVT Prophylaxis: Lovenox Discharge Planning PT recommends rehabilitation. -No need for antibiotics. -Patient will go on warfarin with Lovenox bridge. -We'll need follow-up with wound care for left hand. Dressing changed of left hand was scheduled as outpatient for 08/07. Josesito Forman MD Aug 06, 2017 10:45
[2017-08-06] MEDS ORDERED: NOVOLOGSS SQ (10:52)
[2017-08-06] MEDS ORDERED: LEVEMIR SQ (10:52)
--- NOTE | 2017-08-06 10:55 | HHI.DS ---
Discharge Summary Admission Date Aug 03, 2017 at 22:37 Discharge Date: Aug 06, 2017 Admitting Diagnosis cellulitis (1) Left leg cellulitis ICD Code: L03.116 - Cellulitis of left lower limb (2) Non-occlusive thrombus ICD Code: I82.91 - Chronic embolism and thrombosis of unspecified vein (3) Renal insufficiency ICD Code: N28.9 - Disorder of kidney and ureter, unspecified (4) DM (diabetes mellitus) ICD Code: E11.9 - Type 2 diabetes mellitus without complications Procedures No invasive procedures. Brief History - From Admission This is an 86-year-old female with a PMH of Rheumatoid Arthritis, Raynaud's Disease, A. fib, HTN, COPD, Fibromyalgia, h/o Left Radial Artery Occlusion, s/p LUE Angio 07/13/17 and Hyperlipidemia who was referred to the ER by [facility] for evaluation of LLE redness/swelling. Pt has been following w/ Wound Clinic for RLE wound and Left 2nd Finger, now well-healing. Per patient, LLE redness/swelling started 2 days ago, now w/ progressive worsening, +pain, constant, throbbing, 6-7/10, non-radiating, worse w/ movement. Denies fever, chills or recent injury/trauma. Reports recent Left Hand surgery approx 10 days ago. On arrival, BP 123/61, HR 91, O2 sat 95% on RA, Afebrile. WBC 12.5. Platelets 146, previously 235 on 07/13/17. Creatinine 1.23, previous 1.13 on 07/13/17. BS 471. UA positive nitrites and bacteriuria. CXR with no acute findings. LLE Doppler small focus of nonocclusive thrombus involving distal superficial femoral vein. S/p Vanc in ER. CBC/BMP: 08/04/17 0631 08/05/17 0651 Significant Findings Laboratory Tests Test 08/03/17 17:50 08/03/17 20:50 08/04/17 06:31 08/04/17 16:15 White Blood Count 12.5 TH/MM3 (4.0-11.0) Platelet Count 146 TH/MM3 (150-450) 143 TH/MM3 (150-450) Neutrophils (%) (Auto) 90.1 % (16.0-70.0) 85.7 % (16.0-70.0) Lymphocytes (%) (Auto) 3.3 % (9.0-44.0) 7.3 % (9.0-44.0) Neutrophils # (Auto) 11.3 TH/MM3 (1.8-7.7) 8.9 TH/MM3 (1.8-7.7) Lymphocytes # (Auto) 0.4 TH/MM3 (1.0-4.8) 0.8 TH/MM3 (1.0-4.8) Erythrocyte Sedimentation Rate 31 mm/hr (0-30) Blood Urea Nitrogen 36 MG/DL (7-18) 26 MG/DL (7-18) Creatinine 1.23 MG/DL (0.50-1.00) Random Glucose 471 MG/DL (74-106) 112 MG/DL (74-106) Total Protein 5.7 GM/DL (6.4-8.2) 5.1 GM/DL (6.4-8.2) Albumin 2.5 GM/DL (3.4-5.0) 2.0 GM/DL (3.4-5.0) Aspartate Amino Transf (AST/SGOT) 13 U/L (15-37) 6 U/L (15-37) Sodium Level 132 MEQ/L (136-145) Estimat Glomerular Filtration Rate 42 ML/MIN (>89) 76 ML/MIN (>89) C-Reactive Protein 27.00 MG/DL (0.00-0.30) Urine Glucose (UA) 1000 mg/dL (NEG) Urine Ketones TRACE mg/dL (NEG) Urine Occult Blood TRACE (NEG) Urine Nitrite POS (NEG) Urine Bacteria FEW /hpf (NONE) Urine Mucus FEW /lpf (OCC) Red Blood Count 3.79 MIL/MM3 (4.00-5.30) Hemoglobin A1c 8.6 % (4.3-6.0) Prothrombin Time 9.6 SEC (9.8-11.6) Test 08/05/17 06:51 08/05/17 14:36 08/06/17 07:55 Estimat Glomerular Filtration Rate 58 ML/MIN (>89) Prothrombin Time 9.1 SEC (9.8-11.6) Imaging Last Impressions Lower Extremity Ultrasound 08/03/17 0000 Signed Impressions: Service Date/Time: Thursday, August 03, 2017 18:56 - CONCLUSION: Small focus of nonocclusive thrombus involving the distal superficial femoral vein. Demar Mcdowell Jr., MD Chest X-Ray 08/03/17 0000 Signed Impressions: Service Date/Time: Thursday, August 03, 2017 20:07 - CONCLUSION: No acute disease. Demar Mcdowell Jr., MD Hospital Course Ultrasound was performed which shows left lower extremity DVT as above. Patient was treated with subcutaneous Lovenox, warfarin. She will need to continue on this regimen for at least 6 months, or as directed by PCP. She is weak, PT was consulted, recommends rehabilitation. Patient was also found to have Escherichia coli on urinalysis. Urine positive for nitrites, however only 2 white blood cells. This is most likely contamination/colonization. Patient's blood pressure found to be low in the 100s systolic. Suspect patient has poor compliance with medications at home, and experiences lower blood pressures here on full regimen. We'll discontinue patient's valsartan, continue amlodipine due to possible treatment of reynauds phenomenon. Patient was also found to have diabetes with glucose 471 on admission, A1c 8.6. This was managed with diabetic diet, sliding scale, Levemir. Slightly secondary to patient's chronic prednisone which she is receiving for vascular disease. For problem-based summary from most recent progress note, please see below. //LLE Cellulitis: progressive circumferential erythema/edema x2 days, WBC 12.5 , s/p Vanc in ER, will continue w/ Vanc, add Azactam, follow up cultures. Wound Consult for further evaluation of LLE and management of Left 2nd finger/ RLE wounds. -This is not appear to be left lower extremity cellulitis. Venous pooling of blood when she stands. discontinue antibiotics. //Left lower extremity Non-Occlusive DVT: Doppler LLE w/ non-occlusive DVT superficial femoral vein, unlikely cause of above edema, in light of multiple comorbidities and h/o previous occlusions w/ recent surgical intervention, will start on treatment w/ Lovenox 70mg sq bid. -Continue on Lovenox with warfarin. = Discussed with nursing. Pino wraps when standing. Elevate legs as able. //UTI. Gram-negative yolande on urinalysis. Follow-up cultures. = Patient denies ever having dysuria. Only 2 white blood cells on urinalysis. Patient is received aztreonam IV from midnight the morning of 08/04 until now. No further need for treatment. //Renal Insufficiency: Acute on Chronic. Creatinine 1.23, previously 1.13 on 07/13/17. UA positive for nitrites, mild bacteriuria, will start on treatment with IV Abx, IVF for hydration, repeat labs in am. = Resolved. //Steroid-induced diabetes. - Uncontrolled. BS 47 on admission 1. Start Sliding Scale w/ Accu-Cheks. Check Hgb A1c. = A1c 8.6. Glucose in the 300s (. We'll switch to diabetic diet. Start twice daily Levemir. A1c 8.6.. We'll order diabetic teaching. She may benefit from insulin regimen at home. //DVT Prophylaxis: Lovenox Discharge Planning PT recommends rehabilitation. -No need for antibiotics. -Patient will go on warfarin with Lovenox bridge. -We'll need follow-up with wound care for left hand. Dressing changed of left hand was scheduled as outpatient for 08/07. Pt Condition on Discharge: Good Discharge Disposition: Rehab Inpatient Discharge Time: > 30 minutes Discharge Instructions DIET: Follow Instructions for: Diabetic Diet Activities you can perform: Regular-No Restrictions Other Activity Instructions: Keep left leg elevated when not ambulating. Pino wraps left leg when ambulating. Follow up Referrals: Orthopedics - 2 Days with Patricia Tan MD PCP Follow-up - 2-3 Days with Tee Watson M.d. PCP Follow-up - 1 Week with [facility] - 2-3 Days with Airam Paz MD New Medications: Enoxaparin Inj (Enoxaparin Inj) 60 Mg/0.6 Ml Syr 60 MG SQ BID for Blood Clot Prevention, #14 SYRINGE 0 Refills Warfarin (Warfarin) 4 Mg Tab 4 MG PO DAILY for Blood Clot Prevention, #30 TAB 0 Refills Insulin Aspart Inj (Novolog Inj) 100 Unit/Ml Inj 1 INJECTION SQ ACHS SLIDING SCALE for Blood Sugar Management for 30 Days, INJECTION Insulin Detemir Inj (Levemir Inj) 1,000 unit/ 10 ML Vial 5 UNITS SQ Q12HR for Blood Sugar Management for 30 Days, INJECTION Do not mix with any other Insulin. Continued Medications: Amitriptyline (Amitriptyline) 10 Mg Tab 20 MG PO HS for SLEEP, TAB Amlodipine (Amlodipine) 10 Mg Tab 10 MG PO DAILY for Blood Pressure Management, #30 TAB 0 Refills Ascorbic Acid ER (Vitamin C Tr) 500 Mg Caper 500 MG PO DAILY for Nutritional Supplement, #30 CAP 0 Refills Calcium Carbonate-Cholecalciferol (Calcium 600 with Vitamin D) 600-400 mg-Unit Tab 2 TAB PO BID for Calcium Supplement, TAB 0 Refills Celecoxib (Celebrex) 200 Mg Cap 200 MG PO DAILY for Pain Management, CAP 0 Refills Ezetimibe-Simvastatin (Vytorin) 10-20 Mg Tab 1 TAB PO HS, #30 TAB 0 Refills Fluticasone-Salmeterol Inh (Advair Diskus Inh) 500-50 Mcg/Blist Aer 1 PUFF INH BID, #1 INHALER 0 Refills Rinse mouth after use. Latanoprost Opth Drops (Latanoprost Opth Drops) 0.005% Drops 1 DROP EACH EYE HS for Glaucoma, #2.5 ML 0 Refills Refrigerate until opened. Leflunomide (Leflunomide) 10 Mg Tab 10 MG PO DAILY, TAB Multiple Vitamin (Multiple Vitamin) 1 Tab 1 TAB PO DAILY for Nutritional Supplement, TAB 0 Refills Dawson-3 Fatty Acids (Dawson 3 1200 mg) 684 Mg-1,200 Mg Cap 1200 MG DAILY Potassium Gluconate (Potassium Gluconate) 595 Mg (99 Mg) Tab DAILY Prednisone (Prednisone) 2.5 Mg Tab 20 MG PO DAILY, TAB 0 Refills Pregabalin (Lyrica) 50 Mg Cap 50 MG PO TID, #90 CAP 0 Refills Rabeprazole (Aciphex) 20 Mg Tab 20 MG PO DAILY for Reflux, #30 TAB 0 Refills Tramadol (Tramadol) 50 Mg Tab 50 MG PO Q8H PRN for PAIN, TAB 0 Refills Vitamin E (Vitamin E) 200 Unit Cap 200 UNITS PO DAILY for Nutritional Supplement, CAP 0 Refills Discontinued Medications: Valsartan (Valsartan) 320 Mg Tab 160 MG PO HS, #30 TAB 0 Refills Josesito Forman MD Aug 06, 2017 10:55
[2017-08-06 12:00] VITALS: BP 138/67; PULSE 103; RESP 18; TEMP 97.8; O2SAT 98
[2017-08-06] MEDS: PREGABALIN 25 MG CAP PO SCH ×2 (13:00→17:40)
--- NOTE | 2017-08-06 13:20 | PD.WCN.NOT ---
Wound Consult Description: Received wound management consult from Doctor Gallo for RLE Communicated with: RN Art [address] [place] [id number] and Doctor Forman Recommendation: Please elevate BLE with pillows while in bed. Limit time out of bed with legs in dependent position Additional Information: Patient seen on for evaluation of RLE wound management. Patient noted with pitting edema and discoloration to BLE L worse than right. Pedal pulses are weak but palpable. A dry, intact scab is noted to posterior R leg measuring ~1cm x ~0.7cm. Left scab open to air. Boggy ecchymosis is noted to R dorsal foot measuring ~7cmx ~7cm. Left ecchymotic area open to air. Patient was getting out of bed and noted with wrinkled Abdullahi wrape and L leg. Rewrapped abdullahi wrap requested by Doctor to be on L leg when patient is ambulating. Will discuss with physician recommendations noted above. Jane Jonas [facility] Aug 06, 2017 13:20
[2017-08-06 16:00] VITALS: BP 125/65; PULSE 78; RESP 18; TEMP 97.9; O2SAT 98
--- NOTE | 2017-08-06 17:22 | PD.ORT.PN ---
Subjective Post Op Day #: 12 Pain Scale: minimal left hand Subjective Remarks doing well left hand; going to rehab tonight Range of Motion has almost full AROM of fingers left hand and full AROM of left wrist Objective Vitals Vital Signs Date Time Temp Pulse Resp B/P (MAP) Pulse Ox O2 Delivery O2 Flow Rate FiO2 08/06/17 16:00 97.9 78 18 125/65 (85) 98 08/06/17 12:00 97.8 103 18 138/67 (90) 98 08/06/17 08:00 97.7 96 16 135/70 (91) 95 08/06/17 05:32 97.7 92 18 134/66 (88) 96 08/06/17 00:49 97.7 92 18 116/59 (78) 95 08/05/17 20:25 98.2 72 20 128/70 (89) 98 08/05/17 18:09 18 08/05/17 17:20 98.6 116 18 134/95 (108) 97 I/O 08/05/17 08/05/17 08/05/17 08/06/17 08/06/17 08/06/17 07:00 15:00 23:00 07:00 15:00 23:00 Intake Total 100 ml 100 ml 720 ml Balance 100 ml 100 ml 720 ml Intake Oral 720 ml IV Total 100 ml 100 ml # Voids 3 Result Diagram: 08/04/17 0631 08/05/17 0651 Other Results Laboratory Tests Test 08/06/17 07:55 Prothromb Time International Ratio 1.0 RATIO Prothrombin Time 10.1 SEC (9.8-11.6) Objective Remarks wounds left palm and wrist healing well and no signs of infection bruising left forearm resolving. minimal swelling fingers left hand left index finger with dry gangrene of hyponychial area and no necrosis of left thumb tip. Left index finger and left thumb much improved and fingers warm and pink. 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 Son at the bedside and he will call my office this week, so I can see her next week in the office and remove sutures. In light of recent steroid regimen and headed to rehab, I did not remove the sutures yet, but she is encouraged to use the hand and work on finger motion, just no weight-bearing on the left palm and no lifting more than 1# with the left hand. No dressing changes needed for left hand and may clean left index finger with soap and water daily and leave open to air. Son knows to call for problems and they are very compliant and aware of her medical issues. Patricia Tan MD Aug 06, 2017 17:22
[2017-08-06] MEDS: WARFARIN SOD 3 MG TAB PO SCH (17:39)
[2017-08-06] MEDS: traMADol HCL 50 MG TAB PO PRN (17:42)
[2017-08-06] MEDS ORDERED: PHARMACY ORDERED LAB ONE (20:45)
== END 2017-08-06 19:00 | DRG 603 ==
LOC: NEPC 15:43 → NEDA 22:37 → N05B 23:46
PROVIDERS: ADMIT Internal Medicine; ATTEND Internal Medicine
DX: L03.116 Cellulitis of left lower limb (principal); I82.412 Acute embolism and thrombosis of left femoral vein; E09.22 Drug or chemical induced diabetes mellitus with diabetic chronic kidney disease; E09.65 Drug or chemical induced diabetes mellitus with hyperglycemia; N39.0 Urinary tract infection, site not specified; I12.9 Hypertensive chronic kidney disease with stage 1 through stage 4 chronic kidney disease, or unspecified chronic kidney disease; I48.91 Unspecified atrial fibrillation; N18.9 Chronic kidney disease, unspecified; T38.0X5A Adverse effect of glucocorticoids and synthetic analogues, initial encounter; I70.208 Unspecified atherosclerosis of native arteries of extremities, other extremity; I73.00 Raynaud's syndrome without gangrene; J44.9 Chronic obstructive pulmonary disease, unspecified; K21.9 Gastro-esophageal reflux disease without esophagitis; M79.7 Fibromyalgia; E78.5 Hyperlipidemia, unspecified; M05.242 Rheumatoid vasculitis with rheumatoid arthritis of left hand; M54.9 Dorsalgia, unspecified; G89.29 Other chronic pain; B96.20 Unspecified Escherichia coli [E. coli] as the cause of diseases classified elsewhere; M19.042 Primary osteoarthritis, left hand; Z79.52 Long term (current) use of systemic steroids; Z86.14 Personal history of Methicillin resistant Staphylococcus aureus infection; Z88.0 Allergy status to penicillin; Z88.1 Allergy status to other antibiotic agents; Z88.2 Allergy status to sulfonamides; Z90.710 Acquired absence of both cervix and uterus; Z91.14 Patient's other noncompliance with medication regimen
CPT/HCPCS: 71046; 80053; 81001; 82565; 82948; 83036; 85025; 85610; 85652; 86140; 87077; 87086; 87186; 93971; 96365; 96366; J1650; J1815; J3370; J7050; J7512

== ENCOUNTER 2017-08-09 17:36 | Emergency (ER) | payer MEDICARE, MEDICAID ==
[~2017-08-09 17:36] MED LIST changes: +ENOX60IN SQ; -FOLI400T PO; -GUAI100S7 PO; -LECI12002; +LEVEMIR SQ; -NITR2OIN CHEST; +NOVOLOGSS SQ; -PRED20 PO; -VALS1TAB70 PO; +WARF-20 PO; -[UNRECOGNIZED DRUG - OTHER]
[2017-08-09 17:47] VITALS: BP 136/88; PULSE 96; RESP 18; TEMP 98.2; O2SAT 99
[2017-08-09 18:38] VITALS: BP 117/64; PULSE 96; RESP 17; TEMP 99.1; O2SAT 99
[2017-08-09 18:47] VITALS: BP 147/74; PULSE 106; RESP 20; O2SAT 97
[2017-08-09 19:14] VITALS: BP 124/67; PULSE 100; RESP 16; O2SAT 97
--- NOTE | 2017-08-09 19:21 | PD ---
HPI Chief Complaint: Edema Time Seen by Provider: 19:03 Travel History International Travel<30 days: No Contact w/Intl Traveler<30days: No Traveled to known affect area: No History of Present Illness HPI pt 86 yr female has recent admission for cellulitis to left lower leg. She has had venous stasis and PVD edema ulcers on [facility] lower extremities in the past. pt was sent to rehab and now she is sent back tonight from reh to ER because there is then sudden ( within last 24 hr ) blood Sub Q discoloration to her right foot dorsum, pt says " they said it was cold and black," pt had recently had a hand surgery to increase blood flow to her left fingers that where blacked from ischemia and now she and rehab nurses worry that the same thing occurring with her foot. pt has Right foot toes and toenail that are pink and < 2 sec cap refill. PFSH Past Medical History Arthritis: Yes Asthma: Yes Atrial Fibrillation: Yes Autoimmune Disease: Yes (RA, OA) Anxiety: No Depression: No Heart Rhythm Problems: Yes Cancer: No Cardiovascular Problems: Yes (HTN) High Cholesterol: Yes Chemotherapy: No Chest Pain: No Congestive Heart Failure: No COPD: Yes Cerebrovascular Accident: No Diabetes: No Diminished Hearing: No Endocrine: No Fibromyalgia: Yes Gastrointestinal Disorders: Yes (ACID REFLUX, CONSTIPATION) GERD: Yes Genitourinary: No Hepatitis: No Hiatal Hernia: No Hypertension: Yes Immune Disorder: Yes (RHEUMATOID ARTHRITIS, FIBROMYALGIA) Kidney Stones: No Musculoskeletal: Yes ( CHRONIC BACK PAIN) Neurologic: Yes Psychiatric: No Reproductive: No Respiratory: Yes (COPD) Immunizations Current: Yes Migraines: No Pneumonia: Yes Radiation Therapy: No Renal Failure: No Seizures: No Sickle Cell Disease: No Sleep Apnea: No Thyroid Disease: No Ulcer: No Menopausal: Yes : 2 Para: 2 Past Surgical History Abdominal Surgery: Yes (APPENDECTOMY) AICD: No Appendectomy: Yes Arteriovenous Shunt: No Body Medical Devices: HX OF FIBROMYALGIA Cardiac Surgery: No Ear Surgery: Yes Endocrine Surgery: No Eye Surgery: Yes (SKIP CATARACTS SURGERY) Genitourinary Surgery: Yes (BLADDER SLING) Gynecologic Surgery: Yes (HYSTERECTOMY) Hysterectomy: Yes Insulin Pump: No Joint Replacement: No Neurologic Surgery: Yes Oral Surgery: No Pacemaker: No Thoracic Surgery: No Tonsillectomy: Yes Other Surgery: Yes (REMOVAL OF NASAL POLYPS, COLON POLYP REMOVED) Social History Alcohol Use: No Tobacco Use: No Substance Use: No Allergies-Medications (Allergen,Severity, Reaction): Coded Allergies: ceftriaxone (Unverified Allergy, Severe, 08/03/17) cyclobenzaprine (Unverified Allergy, Severe, HEART PROBLEMS, 08/03/17) gabapentin (Unverified Allergy, Severe, RASH, 08/03/17) meloxicam (Unverified Allergy, Severe, RASH, 08/03/17) metronidazole (Unverified Allergy, Severe, 08/03/17) Sulfa (Sulfonamide Antibiotics) (Unverified Allergy, Mild, Swelling, ) cephalexin (Unverified Allergy, Mild, Swelling, 08/03/17) codeine (Unverified Allergy, Mild, NAUSEA/VOMIT, 08/03/17) penicillin G (Unverified Allergy, Mild, Swelling, 08/03/17) *MDRO Multi-Drug Resistant Organism (Verified Allergy, Unknown, 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 Novolog Inj (Insulin Aspart) 100 Unit/Ml Inj 1 Injection SQ ACHS SLIDING SCALE 30 Days Enoxaparin Inj (Enoxaparin Sodium) 60 Mg/0.6 Ml Syr 60 Mg SQ BID Warfarin 4 Mg Tab 4 Mg PO DAILY Reported Amlodipine (Amlodipine Besylate) 10 Mg Tab 10 Mg PO DAILY Vitamin C Tr (Ascorbic Acid) 500 Mg Caper 500 Mg PO DAILY Calcium 600 with Vitamin D (Calcium Carbonate-Cholecalciferol) 600-400 mg-Unit Tab 2 Tab PO BID Prednisone 2.5 Mg Tab 20 Mg PO DAILY Aciphex (Rabeprazole Sodium) 20 Mg Tab 20 Mg PO DAILY Vitamin E 200 Unit Cap 200 Units PO DAILY Tramadol (Tramadol HCl) 50 Mg Tab 50 Mg PO Q8H PRN [place] 3 1200 mg ([place]-3 Fatty Acids) 684 Mg-1,200 Mg Cap 1,200 Mg DAILY Potassium Gluconate 595 Mg (99 Mg) Tab DAILY Vytorin (Ezetimibe-Simvastatin) 10-20 Mg Tab 1 Tab PO HS Multiple Vitamin 1 Tab 1 Tab PO DAILY Lyrica (Pregabalin) 50 Mg Cap 50 Mg PO TID Leflunomide 10 Mg Tab 10 Mg PO DAILY Latanoprost Opth Drops (Latanoprost) 0.005% Drops 1 Drop EACH EYE HS Refrigerate until opened. Amitriptyline (Amitriptyline HCl) 10 Mg Tab 20 Mg PO HS Advair Diskus Inh (Fluticasone-Salmeterol Inh) 500-50 Mcg/Blist Aer 1 Puff INH BID Rinse mouth after use. Celebrex (Celecoxib) 200 Mg Cap 200 Mg PO DAILY Review of Systems Except as stated in HPI: all other systems reviewed are Neg Musculoskeletal: Positive: Edema, Other (discoloration to right foot dorsum ) Physical Exam Narrative GENERAL: AOX# no acute distress SKIN: Warm and dry. HEAD: Atraumatic. Normocephalic. EYES: Pupils equal and round. No scleral icterus. No injection or drainage. ENT: No nasal bleeding or discharge. Mucous membranes pink and moist. NECK: Trachea midline. No JVD. CARDIOVASCULAR: Regular rate and rhythm. RESPIRATORY: No accessory muscle use. Clear to auscultation. Breath sounds equal bilaterally. GASTROINTESTINAL: Abdomen soft, non-tender, nondistended. Hepatic and splenic margins not palpable. MUSCULOSKELETAL: FOOT EXAM BELOW. NEUROLOGICAL: Awake and alert. No obvious cranial nerve deficits. Motor grossly within normal limits. Five out of 5 muscle strength in the arms and legs. Normal speech. PSYCHIATRIC: Appropriate mood and affect; insight and judgment normal. Foot exam right-sided has purple discoloration and edema however the distal toes are pink and the nails have less than 2 second cap refill appears to be extravasation of blood as opposed to an ischemic discoloration slightly cooler than the left foot but I think this is due to the blood between the skin surface and intact vessels Data Data Last Documented VS Vital Signs Date Time Temp Pulse Resp B/P (MAP) Pulse Ox O2 Delivery O2 Flow Rate FiO2 08/10/17 10:17 08/09/17 19:14 100 16 97 Room Air 08/09/17 18:38 99.1 Orders Orders Complete Blood Count With Diff (08/09/17 19:22) Prothrombin Time / Inr (Pt) (08/09/17 19:22) Comprehensive Metabolic Panel (08/09/17 19:22) Us Leg Soft Tissue (08/09/17 ) Ed Discharge Order (08/09/17 20:50) Amitriptyline (Elavil) (08/09/17 21:30) Diet Regular Basic (08/10/17 Breakfast) Labs Laboratory Tests Test 08/09/17 19:40 White Blood Count 8.6 TH/MM3 Red Blood Count 3.78 MIL/MM3 Hemoglobin 11.7 GM/DL Hematocrit 34.5 % Mean Corpuscular Volume 91.3 FL Mean Corpuscular Hemoglobin 30.8 PG Mean Corpuscular Hemoglobin Concent 33.8 % Red Cell Distribution Width 13.9 % Platelet Count 177 TH/MM3 Mean Platelet Volume 8.6 FL Neutrophils (%) (Auto) 90.0 % Lymphocytes (%) (Auto) 5.2 % Monocytes (%) (Auto) 3.6 % Eosinophils (%) (Auto) 0.4 % Basophils (%) (Auto) 0.8 % Neutrophils # (Auto) 7.7 TH/MM3 Lymphocytes # (Auto) 0.4 TH/MM3 Monocytes # (Auto) 0.3 TH/MM3 Eosinophils # (Auto) 0.0 TH/MM3 Basophils # (Auto) 0.1 TH/MM3 CBC Comment AUTO DIFF Differential Total Cells Counted 100 Neutrophils % (Manual) 81 % Band Neutrophils % 7 % Lymphocytes % 3 % Monocytes % 4 % Neutrophils # (Manual) 8.0 TH/MM3 Metamyelocytes 4 % Myelocytes 1 % Nucleated Red Blood Cells 1 /100 WBC Differential Comment FINAL DIFF MANUAL Platelet Estimate NORMAL Platelet Morphology Comment NORMAL Prothrombin Time 16.1 SEC Prothromb Time International Ratio 1.6 RATIO Blood Urea Nitrogen 31 MG/DL Creatinine 0.99 MG/DL Random Glucose 149 MG/DL Total Protein 6.1 GM/DL Albumin 2.3 GM/DL Calcium Level 9.1 MG/DL Alkaline Phosphatase 71 U/L Aspartate Amino Transf (AST/SGOT) 26 U/L Alanine Aminotransferase (ALT/SGPT) 52 U/L Total Bilirubin 0.2 MG/DL Sodium Level 139 MEQ/L Potassium Level 4.1 MEQ/L Chloride Level 104 MEQ/L Carbon Dioxide Level 28.0 MEQ/L Anion Gap 7 MEQ/L Estimat Glomerular Filtration Rate 53 ML/MIN MDM Medical Decision Making Medical Screen Exam Complete: Yes Emergency Medical Condition: Yes Differential Diagnosis DVT extravasation of blood into the Sub Q peripheral ischemia , traumatic bleeding , edema and bleed vascular incompetence Narrative Course Ultrasound is done by the master sonar technician and there is good arterial blood flow she reports. This does not to be in the ischemic event but much more likely an extravasation of blood due to the fact that she is anticoagulated and has mild peripheral edema she also has good cap refiill < 2 sec in all toes and distal toes are pink not purple , the foot dorsum appears purple the slight cool compared to the other foot is likely due to the edema and blood collecting btw the surface of the foot and the blood and the intact vessels that are below the blood. Ultrasound reading confirms there is good blood flow all the way to the dorsal pedalis artery and this is not due to over anticoagulation, INR 1.6 still subtherapietic D/C back to rehab no need for antibiotics or vascular involvement at this time Diagnosis Primary Impression: Subcutaneous hematoma Disposition: 01 DISCHARGE HOME Condition: Stable Gavino Navarrete MD Aug 09, 2017 19:21
[2017-08-09 20:11] LABS: AUTOMATED NEUTROPHIL # 7.7 TH/MM3 (1.8-7.7); BASOPHIL # 0.1 TH/MM3 (0-0.2); BASOPHIL % 0.8 % (0.0-2.0); EOSINOPHIL % 0.4 % (0.0-4.0); HEMATOCRIT 34.5 % (35.0-46.0); HEMOGLOBIN 11.7 GM/DL (11.6-15.3); LYMPH % 5.2 % (9.0-44.0); LYMPHOCYTE # 0.4 TH/MM3 (1.0-4.8); MEAN CELL VOLUME 91.3 FL (80.0-100.0); MEAN CORPUSCULAR HEMOGLOBIN 30.8 PG (27.0-34.0); MEAN CORPUSCULAR HGB CONC 33.8 % (32.0-36.0); MEAN PLATELET VOLUME 8.6 FL (7.0-11.0); MONO % 3.6 % (0.0-8.0); MONOCYTE # 0.3 TH/MM3 (0-0.9); PLATELET COUNT 177 TH/MM3 (150-450); RED BLOOD COUNT 3.78 MIL/MM3 (4.00-5.30); RED CELL DISTRIBUTION WIDTH 13.9 % (11.6-17.2); WHITE BLOOD COUNT 8.6 TH/MM3 (4.0-11.0)
--- NOTE | 2017-08-09 20:11 | RADRPT ---
EXAM DATE/TIME: 08/09/2017 19:35 [facility] COMPARISON: No previous studies available for comparison. INDICATIONS : Right foot discoloration. MEDICAL HISTORY : Deep venous thrombosis. Hypertension. Hypercholesterolemia. Chronic obstructive pulmonary disease . Glaucoma. Neck pain. Hard of hearing. Hyperlipidemia. Asthma. Dyspnea. Gastroesophageal esophageal reflux. Arthritis. Fibromyalgia. SURGICAL HISTORY : Tonsillectomy. Hysterectomy. Appendectomy. Bilateral cataract removal. Polyps removed. Bladder sling. Right knee surgery. Removed skin leison. ENCOUNTER: Subsequent ACUITY: 1 day PAIN SCORE: 2/10 LOCATION: Right foot. AREA EVALUATED: Right ankle/foot. FINDINGS: MASSES: None. FLUID COLLECTIONS: None. OTHER: Negative. Posterior tibial and dorsalis pedis arteries appear patent. Patent posterior tibial veins. Subcutaneo us edema noted. Nothing organized or drainable. CONCLUSION: Subcutaneous edema. Otherwise negative limited/focused study. Please see above. Tee Rick MD on August 09, 2017 at 20:07 Board Certified Radiologist. This report was verified electronically.
[2017-08-09 20:24] LABS: ALBUMIN 2.3 GM/DL (3.4-5.0); AST (GOT) 26 U/L (15-37); BLOOD UREA NITROGEN 31 MG/DL (7-18); CALCIUM 9.1 MG/DL (8.5-10.1); CHLORIDE 104 MEQ/L (98-107); CREATININE 0.99 MG/DL (0.50-1.00); GLOMERULAR FILTRATION RATE 53 ML/MIN (>89); GLUCOSE,RANDOM 149 MG/DL (74-106); INTERNATIONAL NORMALIZED RATIO 1.6 RATIO; PROTHROMBIN TIME - PATIENT 16.1 SEC (9.8-11.6); SODIUM (NA) 139 MEQ/L (136-145)
[2017-08-09 20:25] LABS: ALT (GPT) 52 U/L (10-53)
[2017-08-09 20:28] LABS: ALKALINE PHOSPHATASE 71 U/L (45-117); TOTAL BILIRUBIN ADULT 0.2 MG/DL (0.2-1.0); TOTAL PROTEIN 6.1 GM/DL (6.4-8.2)
[2017-08-09 20:48] LABS: BANDS 7 % (0-6); CORRECTED NUCLEATED RBC 1 /100 WBC (0-0); LYMPHOCYTES 3 % (9-44); METAMYELOCYTES 4 % (0-1); MONOCYTES 4 % (0-8); MYELOCYTES 1 % (0-0); NUCLEATED RED BLOOD CELL 1 (0-0); POLYS (SEG NEUTROPHILS) 81 % (16-70)
[2017-08-09] MEDS ORDERED: AMITRIPTYLINE HCL 10 MG TAB PO SCH (21:30)
== END 2017-08-10 10:17 | disposition home or self-care (01) ==
LOC: NEPC 17:36 → NEPD 08-10 10:17
DX: S90.31XA Contusion of right foot, initial encounter (principal); I73.9 Peripheral vascular disease, unspecified; J44.9 Chronic obstructive pulmonary disease, unspecified; I10 Essential (primary) hypertension; E78.00 Pure hypercholesterolemia, unspecified; E78.5 Hyperlipidemia, unspecified; I48.91 Unspecified atrial fibrillation; H40.9 Unspecified glaucoma; K21.9 Gastro-esophageal reflux disease without esophagitis; M06.9 Rheumatoid arthritis, unspecified; M79.7 Fibromyalgia; Z86.718 Personal history of other venous thrombosis and embolism; Z88.0 Allergy status to penicillin; Z88.2 Allergy status to sulfonamides; Z88.5 Allergy status to narcotic agent; Z79.4 Long term (current) use of insulin; Z79.01 Long term (current) use of anticoagulants; Z79.899 Other long term (current) drug therapy
CPT/HCPCS: 76882; 80053; 85007; 85027; 85610; 99284; 99285